=== PATIENT | female | born 1950 | race Caucasian/White ===

== ENCOUNTER → 2017-04-22 | Day surgery (SDC) | payer OTHER ==
[~2017-04-22] VITALS: Ht 160 cm; Wt 94.3 kg
--- NOTE | 2017-04-22 12:06 | Operative Report ---
Operative/Inv Procedure Report Surgery Date: 04/22/17 Name of Procedure: Cataract extraction lens implantation right eye Pre-Operative Diagnosis: Age-related cataract right eye 20/40 vision 20/60 glare vision Post-Operative Diagnosis: Same Estimated Blood Loss: none Surgeon/Environmental Health Aide: Danielito HOOD,Kareem Astorag Anesthesia: local monitored anesthesi Complications: None Operative/Procedure Note Note: The patient was brought to the operating room standard monitoring equipment was attached the patient was prepped and draped in the usual fashion for intraocular surgery. A lid speculum was placed to retract the lids. The case was begun by making [2] partial-thickness corneal relaxing [incisions] at 135. A temporal incision with a 2.4 mm keratome. The eye was stabilized with a Goldman ring during this incision. 1 mL of non-preserved lidocaine was introduced into the anterior chamber to provide anesthesia. The anterior chamber was then filled and deepened with viscoelastic. A curvilinear capsulorrhexis was achieved using a 30-gauge needle and is a cystotome and capsulorrhexis was finished using a Utrata forceps. A second or paracentesis incision was made temporally with a 1 mm MVR blade. The lens was then hydrodissected with balanced salt solution and found to be rotatable. The lens was emulsified using phacoemulsification and a modified four-quadrant cracking technique. The residual cortical material was removed using automated irrigation and aspiration and as much of the anterior capsular rim was cleaned as well as possible. The posterior capsule was cleaned first with the automated machine on a low setting and then manually with a Jake squeegee. The capsular bag was deepened with viscoelastic. The lens a Akreos AO60 22.5 Diopter placed into the bag under direct visualization and rotated so that the haptics were at 12 and 6:00. Viscoelastic was then removed from the eye by flushing it out and then by automated irrigation and aspiration. The eye was pressurized to a normal tone. 1/10 of a cc of cefuroxime solution was introduced into the anterior chamber to provide antibiotic prophylaxis. The wounds were sealed by hydrating the stroma adjacent to them and the eye was left at a proper tone after the wounds were checked and found not to be leaking. The lid speculum was removed from the orbit. Antibiotic and steroid drops were placed on the eye and then the eye was shielded. Monitoring equipment was removed from the patient and the patient was removed from the operative suite to the holding area. The patient tolerated the procedure well and will be seen in the office tomorrow.
== END ==
LOC: STS 03-18 07:00
DX: H25.9 Unspecified age-related cataract (principal); E11.9 Type 2 diabetes mellitus without complications; Z79.84 Long term (current) use of oral hypoglycemic drugs; J44.9 Chronic obstructive pulmonary disease, unspecified
CPT/HCPCS: J2250; V2632

== ENCOUNTER → 2017-06-10 | Day surgery (SDC) | payer OTHER ==
[~2017-06-10] VITALS: Ht 160 cm; Wt 91.2 kg
--- NOTE | 2017-06-10 11:07 | Operative Report ---
Operative/Inv Procedure Report Surgery Date: 06/10/17 Name of Procedure: Cataract extraction lens implantation left eye Pre-Operative Diagnosis: Age-related cataract left eye 20/40 vision 20/60 glare vision Post-Operative Diagnosis: Same Estimated Blood Loss: none Surgeon/Videotape Sales Representative: Danielito HOOD,Kareem Astorga Anesthesia: local monitored anesthesi Complications: None Operative/Procedure Note Note: The patient was brought to the operating room standard monitoring equipment was attached the patient was prepped and draped in the usual fashion for intraocular surgery. A lid speculum was placed to retract the lids. The case was begun by making 2 partial-thickness corneal relaxing incisions at 70. A temporal incision with a 2.4 mm keratome. The eye was stabilized with a Goldman ring during this incision. 1 mL of non-preserved lidocaine was introduced into the anterior chamber to provide anesthesia. The anterior chamber was then filled and deepened with viscoelastic. A curvilinear capsulorrhexis was achieved using a 30-gauge needle and is a cystotome and capsulorrhexis was finished using a Utrata forceps. A second or paracentesis incision was made temporally with a 1 mm MVR blade. The lens was then hydrodissected with balanced salt solution and found to be rotatable. The lens was emulsified using phacoemulsification and a modified four-quadrant cracking technique. The residual cortical material was removed using automated irrigation and aspiration and as much of the anterior capsular rim was cleaned as well as possible. The posterior capsule was cleaned first with the automated machine on a low setting and then manually with a Jake squeegee. The capsular bag was deepened with viscoelastic. The lens a Akreos AO 60 22.5 Diopter placed into the bag under direct visualization and rotated so that the haptics were at 12 and 6:00. Viscoelastic was then removed from the eye by flushing it out and then by automated irrigation and aspiration. The eye was pressurized to a normal tone. 1/10 of a cc of cefuroxime solution was introduced into the anterior chamber to provide antibiotic prophylaxis. The wounds were sealed by hydrating the stroma adjacent to them and the eye was left at a proper tone after the wounds were checked and found not to be leaking. The lid speculum was removed from the orbit. Antibiotic and steroid drops were placed on the eye and then the eye was shielded. Monitoring equipment was removed from the patient and the patient was removed from the operative suite to the holding area. The patient tolerated the procedure well and will be seen in the office tomorrow.
== END ==
LOC: STS 01:11
DX: H25.9 Unspecified age-related cataract (principal); E11.9 Type 2 diabetes mellitus without complications; Z79.84 Long term (current) use of oral hypoglycemic drugs; J44.9 Chronic obstructive pulmonary disease, unspecified; I10 Essential (primary) hypertension; J45.909 Unspecified asthma, uncomplicated
CPT/HCPCS: J2250; V2632

== ENCOUNTER 2017-11-10 18:51 | Inpatient (IN) | payer OTHER ==
[~2017-11-10] VITALS: Ht 160 cm; Wt 89.5 kg
--- NOTE | 2017-11-10 19:05 | ED GENERAL ADULT ---
History of Present Illness General Chief Complaint: General Adult Stated Complaint: SIB MUREAL, DEHYDRATION Source: patient, family, old records Exam Limitations: no limitations Vital Signs & Intake/Output Vital Signs & Intake/Output Vital Signs Date Time Temp Pulse Resp B/P B/P Pulse O2 O2 Flow FiO2 Mean Ox Delivery Rate 11/10 2303 98.7 76 20 140/78 97 11/10 2100 98.6 76 18 142/65 98 Room Air 11/10 1954 97 Room Air 11/10 1856 98.5 90 17 148/79 97 Room Air ED Intake and Output 11/11 0000 11/10 1200 Intake Total 1000 Output Total Balance 1000 Intake, IV 1000 Patient 201 lb Weight Weight Bed scale Measurement Method Allergies Coded Allergies: No Known Allergies (06/09/17) Triage Note: PT SENT TO ED BY MD REYNA FOR ABNORMAL LABS. HAD POTASSIUM LEVEL 7.2 AND REPORTS SHE IS DEHYDRATED. HAD CT SCAN OF ABD DONE ON THURSDAY FOR ABD PAIN. STATES ONLY HAD ORAL CONTRAST. CURRENTLY SYMPTOM FREE. Triage Nurses Notes Reviewed? yes HPI: This is a 67-year-old female with history of diu-dtvzxuv-xdqalnsne diabetes, hypertension, asthma, obesity and chronic diarrhea of unclear etiology with recently diagnosed celiac disease presenting to the emergency department with outpatient finding of hyperkalemia to 7.2. Patient denies any new symptoms but does complain of ongoing diarrhea. Specifically there is been no lightheadedness, dizziness, confusion, chest pain, shortness of breath, abdominal pain, nausea, vomiting. She reports normal urine output. She denies any lower extremity edema. Patient underwent CT abdomen and pelvis without IV contrast recently. See PCI for result. (Twan HOOD,Kareem) Reconcile Medications Ascorbic Acid (Vitamin C) 500 MG CAPSULE 1 TAB PO D HEALTH SUPPLEMENT ( Reported) Cholecalciferol (Vitamin D3) 1,000 UNIT TABLET 3 TAB PO D HEALTH SUPPLEMENT ( Reported) Cyanocobalamin (Vitamin B-12) 1,000 MCG TABLET 1.5 TAB PO DAILY HEALTH SUPPLEMENT (Reported) Fluticasone Propionate (Flovent Hfa) 220 MCG AER.W.ADAP 2 PUF INH BID ASTHMA (Reported) Hydroxyzine Hydrochloride (Atarax) 25 MG TAB 2 TAB PO BID ALLERGIES (Reported ) Lisinopril 20 MG TABLET 1 TAB PO QPM HIGH BLOOD PRESSURE (Reported) (Neftali Mabry MD) Past History Travel History Traveled to [place] past 21 day No Medical History Any Pertinent Medical History? see below for history Cardiovascular: hypertension Respiratory: asthma Gastrointestinal: CELIAC Endocrine: diabetes Surgical History Surgical History: non-contributory Psychosocial History What is your primary language Luxembourgish Tobacco Use: Never used Family History Hx Contributory? No (Kareem Trent MD) Review of Systems Review of Systems Constitutional: Reports: no symptoms. GI: Reports: diarrhea. All Other Systems: Reviewed and Negative (Kareem Trent MD) Physical Exam Physical Exam General Appearance: well developed/nourished, no apparent distress, comfortable Comments: Well-appearing elderly female, no acute distress. Abdomen is benign. HEENT exam within normal limits. Cardiac: Exam within normal limits. No significant edema bilateral lower extremity's. Intact pulse movement and sensation in all extremities. Patient neurologically intact, alert and oriented 4 Core Measures ACS in differential dx? No CVA/TIA Diagnosis: No Sepsis Present: No Sepsis Focused Exam Completed? No (Kareem Trent MD) Progress Differential Diagnoses I considered the following diagnoses in my evaluation of the patient: Lab error, hyperkalemia, unclear underlying etiology although some concern for acute kidney injury in the setting of volume depletion versus other primary renal etiology. Low suspicion for acute obstructive process given recent CT findings. Plan of Care: Orders Procedure Date/time Status Renal Dialysis Diet 11/11 B Active CBC WITHOUT DIFFERENTIAL 11/11 06 Active BASIC ELECTROLYTES PLUS BUN&CR 11/11 06 Active BASIC ELECTROLYTES PLUS BUN&CR 11/10 2300 Active Weight 11/10 2121 Active Teach/Educate 11/10 2121 Active Pain Treatment and Response 11/10 2121 Active Nutritional Intake, Monitor 11/10 2121 Active Isolation 11/10 2121 Active Patient Care Conference 11/10 2121 Active Activity/Ambulation 11/10 2121 Active Telemetry/[employer] Advisor 11/11 2103 Active Patient Data 11/11 2047 Active Admit to inpatient 11/10 2046 Active Vital Signs 11/10 2046 Complete Code Status 11/10 2046 Active Intake & Output 11/10 195 Complete URINE CREATININE, SPOT 11/10 1938 Complete URINE LYTES, SPOT 11/10 1938 Complete URINALYSIS 11/10 185 Complete MAGNESIUM 11/11 1855 Complete COMPREHENSIVE METABOLIC PANEL 11/10 185 Complete CBC WITHOUT DIFFERENTIAL 11/10 185 Complete EKG 11/10 185 Active TRC EVALUATION (GEN) 11/10 UNK Active Lab Add-on Test 11/10 [employer] Active Vital Signs 11/10 UNK Active Intake & Output 11/10 UNK Active FingerStick- Glucose 11/10 [employer] Active Laboratory Tests 11/11/17 0018: Sodium Pending, Potassium Pending, Chloride Pending, Carbon Dioxide Pending, Anion Gap Pending, BUN Pending, Creatinine Pending, BUN/Creatinine Ratio Pending 11/10/172136: Urine Color STRAW, Urine Clarity CLEAR, Urine pH 6.0, Ur Specific [place] 1.015, Urine Protein NEG, Urine Ketones NEG, Urine Nitrite NEG, Urine Bilirubin NEG, Urine Urobilinogen 0.2, Ur Leukocyte Esterase NEG, Ur Microscopic SEDIMENT EXAMINED, Urine RBC RARE, Ur Epithelial Cells RARE, Urine Bacteria RARE H, Urine Hemoglobin TRACE-INTACT, Urine Glucose NEG 11/10/172136: Ur Random Creatinine 7.9, Ur Random Sodium 132 H, Ur Random Potassium 11.4, Fraction Sodium Excret 17.8 H 11/10/171906: Anion Gap 7, Estimated GFR 35 L, BUN/Creatinine Ratio 20.0, Glucose 131 H, Calcium 9.1, Magnesium 1.4 L, Total Bilirubin 0.2, AST 14, ALT 22, Alkaline Phosphatase 70, Total Protein 6.5, Albumin 3.8, Globulin 2.7, Albumin/Globulin Ratio 1.4, CBC w Diff NO MAN DIFF REQ, RBC 3.42 L, MCV 91.1, MCH 30.1, MCHC 33.1, RDW 12.9, MPV 8.2, Gran % 55.7, Lymphocytes % 29.7, Monocytes % 5.6, Eosinophils % 8.7 H, Basophils % 0.3, Absolute Granulocytes 3.9, Absolute Lymphocytes 2.1, Absolute Monocytes 0.4, Absolute Eosinophils 0.6, Absolute Basophils 0 Plan for medical management of hyperkalemia, frequent reassessment, likely admission to hospitalist service for further management. Initial ED EKG: normal axis, normal intervals, normal p-waves, normal QRS complex, normal sinus rhythm, TW are mildly peaked; no qrs widening ([place] HOOD,Kareem) Departure Departure Time of Disposition: 2117 Disposition: STILL A PATIENT Condition: Stable Clinical Impression Primary Impression: Hyperkalemia Secondary Impressions: MARTELL (acute kidney injury) Referrals: Korin Bran MD (PCP/Family) Departure Forms: Customer Survey General Discharge Information Admission Note Spoke With: Mandi Pepper MD Documentation of Exam: Documentation of any treatments & extenuating circumstances including Concerns Regarding Discharge (functional status, medication knowledge or non-compliance, living conditions, etc.) that warrant an admission rather than observation: Repeat labs, nephrology consultation, IV fluids, frequent reassessment (Kareem Trent MD) PA/FLATWORK ASSEMBLER Co-Sign Statement Statement: ED Attending supervision documentation- x I saw and evaluated the patient. I have also reviewed all the pertinent lab results and diagnostic results. I agree with the findings and the plan of care as documented in the PA's/FLATWORK ASSEMBLER's documentation. [] I have reviewed the ED Record and agree with the PA's/FLATWORK ASSEMBLER's documentation. [] Additions or exceptions (if any) to the PAs/FLATWORK ASSEMBLER's note and plan are summarized below: [] (Raghavendra HOOD,Neftali) Critical Care Note Critical Care Note Critical Care Time: non-applicable (Kareem Trent MD)
[2017-11-10 19:12] LABS: ABSOLUTE BASOPHIL COUNT 0 /CUMM (0.0-0.2); ABSOLUTE EOSINOPHIL COUNT 0.6 /CUMM (0.0-0.7); ABSOLUTE GRANULOCYTE CT 3.9 /CUMM (1.4-6.5); ABSOLUTE LYMPH COUNT 2.1 /CUMM (1.2-3.4); ABSOLUTE MONOCYTE COUNT 0.4 /CUMM (0.10-0.60); BASOPHIL % 0.3 % (0.0-2.0); EOSINOPHIL % 8.7 % (0-5); GRANULOCYTE % 55.7 % (42.2-75.2); HEMATOCRIT 31.2 % (37-47); MEAN CORPUSCULAR HGB 30.1 PG (27.0-31.0); MEAN CORPUSCULAR HGB CONC 33.1 G/DL (33.0-37.0); MEAN CORPUSCULAR VOLUME 91.1 FL (81.0-99.0); MEAN PLATELET VOLUME 8.2 FL (7.4-10.4); PLATELET COUNT 298 /CUMM (130-400); RBC DISTRIBUTION WIDTH 12.9 % (11.5-14.5); RED BLOOD CELL CT 3.42 /CUMM (4.20-5.40)
[2017-11-10] MEDS ORDERED: LISINOPRIL20 M1 PO (21:24)
[2017-11-10] MEDS ORDERED: FLOVENT HFA12 GM INH (21:25)
[2017-11-10] MEDS ORDERED: VITAMIN B-121000 MC3 PO (21:28)
[2017-11-10] MEDS ORDERED: VITAMIN C500 M9 PO (21:29)
--- NOTE | 2017-11-10 21:29 | History & Physical ---
Vinny Reyna 11/10/172128: General Information and HPI MD Statement: I have seen and personally examined CASS RAMSEY and documented this H&P. The patient is a 67 year old F who presented with a patient stated chief complaint of [chronic diarrhea and high potassium of 7.2]. Source of Information: patient, family Exam Limitations: no limitations History of Present Illness: Patient is a 67-year-old lady with a past medical history significant for non- insulin-dependent diabetes mellitus, hypertension, asthma, obesity, chronic diarrhea who presented to emergency department of [facility] with a potassium of 7.2 which was checked outside. The patient has an extensive history of diarrhea for the past 2 years with unknown etiology. Her hand sewer shoes is Dr. Freedman, who has tried to do colonoscopy 4 times over so far, but was never performed due to the frequent numbers of diarrhea. She has recently tried gluten-free diet and noticed that the numbers of the diarrhea has decreased. She mentions that she wears pads and she almost has 28 episodes of diarrhea in every 1-1/2 day. She does not have any fever, chills, sweating. She mentions that she has blood in his stool since she has started to have diarrhea. She describes the blood as "red blubs and jelly". In his most recent blood work it was noticed that he has a creatinine of 1.5, she was using metformin for her diabetes, which was a stopped from this morning. She mentions that she has been taking 400 mg of ibuprofen every day for almost more than 10 years due to her arthritis induced pain which does not respond to acetaminophen. She reports that in June when her renal function was checked her creatinine was slightly elevated, which was normal in the lab recheck. He denies any lightheadedness, dizziness, confusion, palpitation, chest pain, shortness of breath, abdominal pain, nausea, vomiting, frequency, dysuria, lower extremity edema. The patient mentioned that recently they have found a mass in her pelvis for which they have recommended intravaginal ultrasound. In the same CT scan they have also found gallstones, the patient also reports that she has right upper quadrant pain after fatty meals. While in the ED she had an episode of blood sugar of 60 which was checked by Accu-Chek. Half of normal saline was given to her. She did not have any symptoms with low blood sugar. Her PCP is Dr. Niel and her hand sewer shoes is Dr. Freedman. Allergies: She is not allergic to any known medications or foods Past medical history: None insulin dependent diabetes mellitus which was diagnosed in last August, hypertension, asthma, obesity, chronic diarrhea for the past 2 years, Past surgical history: PHACO for cataracts bilaterally that was done this year, surgery for ectopic in 1979 Social history: She does not smoke and has never smoked cigarettes, no alcohol, and no drugs. Family history: Her daughter mentions that the patient's mother has of colitis. Allergies/Medications Allergies: Coded Allergies: No Known Allergies (06/09/17) Compliance With Home Meds: GOOD Past History Travel History Traveled to [place] past 21 day No Medical History Cardiovascular: hypertension Respiratory: asthma Gastrointestinal: CELIAC Endocrine: diabetes Surgical History Surgical History: non-contributory Review of Systems Review of Systems Constitutional: Reports: see HPI. Exam & Diagnostic Data Last 24 Hrs of Vital Signs/I&O Vital Signs Date Time Temp Pulse Resp B/P B/P Pulse O2 O2 Flow FiO2 Mean Ox Delivery Rate 11/10 2303 98.7 76 20 140/78 97 11/10 2100 98.6 76 18 142/65 98 Room Air 11/10 1954 97 Room Air 11/10 1856 98.5 90 17 148/79 97 Room Air Intake & Output 11/11 0800 11/11 0000 11/10 1600 Intake Total 1000 Output Total Balance 1000 Intake, IV 1000 Patient 201 lb Weight Weight Bed scale Measurement Method Physical Exam General Appearance Alert, Oriented X3, Cooperative, No Acute Distress Skin No Rashes Skin Temp/Moisture Exam: Warm/Dry Sepsis Skin Exam (color): Normal for Ethnicity HEENT Atraumatic, PERRLA, EOMI, Mucous Membr. moist/pink Neck Supple, No thryomegaly Cardiovascular Regular Rate, Normal S1, Normal S2 Lungs Clear to Auscultation, Normal Air Movement Abdomen Normal Bowel Sounds, Soft, No Tenderness, No Hepatospenomegaly Neurological Normal Speech, Strength at 5/5 X4 Ext, Normal Tone Extremities No Clubbing, No Cyanosis, No Edema, Normal Pulses Vascular Normal Pulses, Pulses Symmetrical Sepsis Peripheral Pulse Location: Dorsalis Pedis Sepsis Peripheral Pulse Exam: Normal Sepsis Cap Refill Exam: <2 Sec Assessment/Plan Assessment: The patient is a 67-year-old female past medical history significant for non- insulin-dependent diabetes mellitus, hypertension, asthma, obesity, chronic diarrhea who has presented to ED with a high potassium of 7.2. Hyperkalemia: The patient was admitted to the ED with a potassium of 7.2 which decreased to 6.7 and then up again to 6.9. EKG did not show any changes. The patient has an ongoing diarrhea for almost 2 years, I would expect hypokalemia if anything, so there is probably some underlying disorder which is causing retention of potassium. Was also taking some medications like lisinopril which increases potassium. Plan: Discontinue lisinopril, urine potassium, Kayexalate, dextrose and insulin, calcium gluconate, normal saline and furosemide. Aldosterone, serum renin, urine electrolytes will be checked Acute kidney injury: The patient was diagnosed to have a creatinine of 1.5 today , the last creatinine was checked in June which was slightly elevated and when it was checked later in the same month it was normal. The patient has a long history of using 400 mg of ibuprofen (Advil) 4 days a week for the past 10 years due to arthritis pain. She also has a recently diagnosed auq-sdaiyks-wdlovxwmm diabetes mellitus. These factors could be the underlying cause of acute kidney injury. Plan: Stop all nephrotoxic agents, normal saline IV at 75 mL/h, public accountant consult Hypoglycemia: The patient had one episode of asymptomatic blood sugar of 60 Plan: We will check blood sugar regularly and will administer dextrose as needed Chronic diarrhea: She has had an ongoing chronic diarrhea for 2 years, her hand sewer shoes is Dr. Freedman, we will talk to Dr. Freedman to see the patient tomorrow morning. She did not have any history of recent antibiotic use. She also has a hemoglobin of 10.3 she is probably due to chronic blood loss from the lower GI tract. Plan: C. difficile, GI consult Hypomagnesemia: The patient had a magnesium level of 1.4 in ED Plan: 1 g of IV magnesium was administered and we will recheck magnesium. Continue with p.o. magnesium Obesity: The patient has a BMI of 35.6 Plan: Asked the patient to try to lose weight. As Ranked By This Provider Problem List: 1. MARTELL (acute kidney injury) 2. Hyperkalemia Core Measures/Misc (11/16) Acute Coronary Syndrome ACS Diagnosis: No Congestive Heart Failure Congestive Heart Failure Diagnosis No Cerebrovascular Accident CVA/TIA Diagnosis: No VTE (View Protocol) VTE Risk Factors Age>40 No Mechanical VTE Prophylaxis d/t N/A MechProphylax Ordered No VTE Pharm Prophylaxis d/t NA PharmProphylax ordered Sepsis (View protocol) Sepsis Present: No If YES complete Sepsis Event Note If YES complete Sepsis Event Note Lia Chang 11/10/172: General Information and HPI Allergies/Medications Home Med list Amlodipine Besylate (Norvasc) 10 MG TABLET 1 TAB PO DAILY BP . Ascorbic Acid (Vitamin C) 500 MG CAPSULE 1 TAB PO D HEALTH SUPPLEMENT ( Reported) Cholecalciferol (Vitamin D3) 1,000 UNIT TABLET 3 TAB PO D HEALTH SUPPLEMENT ( Reported) Cyanocobalamin (Vitamin B-12) 1,000 MCG TABLET 1.5 TAB PO DAILY HEALTH SUPPLEMENT (Reported) Fluticasone Propionate (Flovent Hfa) 220 MCG AER.W.ADAP 2 PUF INH BID ASTHMA (Reported) Hydroxyzine Hydrochloride (Atarax) 25 MG TAB 2 TAB PO BID ALLERGIES (Reported ) Core Measures/Misc (11/16) Sepsis (View protocol) If YES complete Sepsis Event Note If YES complete Sepsis Event Note Resident Review Statement Resident Statement: examined this patient, discussed with internal consultant, agreed with internal consultant Other Findings: Mrs Ramsey is a 67-year-old female with past medical history of insulin- dependent diabetes mellitus, hypertension, hyperlipidemia,, asthma, chronic diarrhea secondary to celiac disease, came in with chief complaint of chronic diarrhea along with high potassium and was referred to come in to [facility] by her primary care Dr. Neil. More recent history, she has been having chronic diarrhea for past 2 years, she endorses a history of having almost 26-28 episodes every day, and changing at least 50-56 pads in 24 hours, she has been using Imodium on and off, she has been seeing Dr. Ortiz as outpatient however due to her extreme uncontrollable diarrhea in spite of trying to have preparation for colonoscopy 4 times, she has not had a colonoscopy. She also endorses history of bright red blood per rectum, streak of blood on and off when she has diarrhea, no theodore blood. Her primary care did some blood tests and she was found to have celiac disease after which she has been using gluten-free diet. This has been helping control her diarrhea only up to a certain extent. She also endorses to history of taking meloxicam almost 4 times per week on average for more than 10 years now. Her primary care Dr. neil has been following her renal functions previously her renal functions have noted to be elevated however this time she had extremely high creatinine and extremely high potassium therefore she was asked to come to the ER. Review of system is mentioned above. Physical exam she was alert oriented to time place and person, not in any acute distress. HEENT no JVD. CVS S1-S2 present. RS air entry bilaterally equal, no adventitious sounds. Per abdomen soft, nontender Lateral lower extremity no edema clubbing or cyanosis. CT A/P doen at PCP office shwoed 1. Cholelithiasis with the largest partially calcified gallstone measures 3 cm. 2. Subcapsular solitary 2 cm hypodense lesion within the spleen, may represent an incidental cyst. 3. 4.5 cm predominantly cystic, associated with 1.5 cm solid nodular component, left adnexal mass. Follow-up pelvic ultrasound is recommended for further full detail evaluation. She was planned to obtain a transvaginal ultrasound. She also complains of some mild right upper quadrant pain on and off, currently she does not have any pain. Vitals on presentation Temperature of 98.7, pulse of 76-90, respiration of 18-20, blood pressure of 142 /65, she was saturating 97% on room air Potassium of 7.0, H/H of 10.3/31.2 (baseline 8/H), platelet of 298. Sodium of 141, potassium 6.7, BUN/creatinine 30/1.5, magnesium of 1.4. Initial EKG showed mildly peaked T waves, however normal sinus rhythm, QTC of 351, no other acute ST-T wave changes We will admit the patient to cardiac telemetry floor for continuous cardiac monitoring. Assessment. Patient has been having chronic diarrhea with multiple episodes of diarrhea every day, with this background she would rather be losing potassium, however she actually has higher potassium with acute kidney injury. The AK I along with high potassium seems to be secondary to multiple causes, one of them could be long-term use of NSAIDs, other contributing factor could be dehydration along with history of diabetes mellitus. She was also on metformin for her diabetes which was discontinued 1 day prior to today's presentation by her PCP. She also takes lisinopril, which would also cause hyperkalemia, we will hold lisinopril and dose her with Norvasc 10 mg for her blood pressure. Metabolic acidosis with high potassium also indicates type IV RTA, we will obtain plasma renin, aldosterone along with a.m. cortisol, which could be followed. Problem list. 1 MARTELL (multifactorial, dehydration plus NSAID use plus diabetes plus lisinopril) . Continue to monitor intake and output, continue IV hydration, avoid any kind of NSAID usage. Hold metformin which has been done by primary care. Hold lisinopril, treat blood pressure with Norvasc. Obtain plasma renin, aldosterone along with a.m. cortisol as 1 of the possible causes could be RTA. Recent HbA1c noted to be 6.3 as per the patient's history. Continue to monitor BEP. Avoid any other nephrotoxic medications. Nephro consult in am 2 Hyperkalemia. Patient received initial IV calcium gluconate, insulin with dextrose along with Kayexalate, she had mildly elevated T waves however no obvious changes on EKG, hyperkalemia seems to be secondary to RTA, workup as above, continue to monitor potassium. 3 Normocytic anemia, hemoglobin in August 2016 was noted to be 14.4, gradually reduced to 11.4 in June 2017 and now 10.3 in October 2017. Patient has been losing blood in her stools, guaiac all stools, she has been planned for colonoscopy, GI consult in a.m. to see if colonoscopy can be pursued during this admission. We will obtain serum iron studies to look into the cause of anemia. Crossmatching type. Can also check B12/folate. 4. Occasional right upper quadrant pain. Patient was found to have cholelithiasis with no evidence of cholecystitis on recent CT abdomen and pelvis. Continue to monitor closely. Avoid fatty meals. 5. Pelvic adnexal mass. Transvaginal ultrasound recommended by PCP, can be done now versus outpatient 6. Hypomagnesemia Secondary to chronic diarrhea, continue to monitor and replete as necessary. 7. History of insulin-dependent diabetes mellitus, with one episode of hypoglycemia. Patient was found to have sugar in 60s, she was on metformin which was discontinued 1 day prior to today's presentation due to worsening kidney functions. We will continue to monitor fingerstick and manage her with NovoLog sliding scale. For now she was given dextrose and her sugar has improved to 116 Full code. Renal dialysis diet. Pain pathway. DVT prophylaxis with Vivian Pepper MD,Williamalinasamira 11/10/17 2251: Core Measures/Misc (11/16) Sepsis (View protocol) If YES complete Sepsis Event Note If YES complete Sepsis Event Note Attending MD Review Statement Attending Statement Attending MD Statement: examined this patient, discuss w/resident/PA/SUPPORT MANAGER, agreed w/resident/PA/SUPPORT MANAGER, discussed with family, reviewed EMR data (avail), discussed with nursing, reviewed images, amended to note Attending Assessment/Plan: 67-year-old female with history of cla-qkcauxo-iwzeguuqm diabetes mellitus, osteoarthritis on chronic NSAID therapy with ibuprofen, hypertension on ASHLI inhibitor therapy and chronic diarrhea currently being worked up by the gastroenterology service. Sent in for evaluation due to elevated potassium levels. Laboratory data shows potassium level chronically elevated dating Back to April 2017. Her only symptoms include chronic diarrhea. She reports several loose bowel movements daily. She admits to some relief with use of Imodium. Admits to some bright red blood per rectum on occasion. She also complains intermittently of right upper quadrant pain. Denies associated nausea or vomiting. On examination she is not in any obvious distress. Abdomen is soft and nontender with no reproducible pain. Bowel sounds are normal. She has no physical evidence of volume overload. Problems: 1. Hyperkalemia 2. 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 3. Chronic diarrhea 4. Chronic anemia 5. Chronic kidney disease stage III Plan: -On account of EKG changes noted in the emergency room she was admitted to the telemetry service. -Patient received insulin (with dextrose), calcium gluconate Lasix and IV fluids in the ER. Repeat serum electrolytes. Continue IV fluids overnight. -She has multiple potential causes of type IV RTA including diabetic nephropathy , NSAID use and also ASHLI inhibitor therapy. Hold NSAIDs for now. Hold ASHLI inhibitor therapy. -Begin patient on Norvasc 10 mg daily for blood pressure control. -Would recommend checking plasma renin activity, aldosterone and cortisol level to rule out hyporeninemic hypoaldosteronism and determine if patient will benefit from mineralocorticoid therapy. -Nephrology consultation. -Check iron profile. -For her diarrhea recommend ruling out Clostridium difficile associated diarrhea and other infectious diarrhea. These appear less likely given the chronicity of her diarrhea. She should follow-up with the GI service as an outpatient for scheduling of her colonoscopy.
[2017-11-10] MEDS ORDERED: VITAMIN D31000 UNI2 PO (21:30)
[2017-11-10] MEDS ORDERED: HYDROXYZINE HCL25 M2 PO (22:08)
--- NOTE | 2017-11-10 22:49 | Admission Certification ---
Admission Certification Certification Statement - As attending physician, I certify that at the time of - admission, based on clinical presentation, severity of - symptoms, need for further diagnostic testing and - therapeutic interventions, and risk of adverse outcomes - without in-hospital treatment, in my clinical assessment, - this patient requires an acute hospital stay for a minimum - of two nights or longer. I have also considered psychsocial - factors such as support system, advanced age, financial - issues, cognitive issues, and failed out-patient treatments, - past re-admission history, safety of patient, and lack of - compliance as applicable. Specific rationale supporting this admission is: Patient requires hospitalization for correction for hyperkalemia and further workup.
[2017-11-10 23:03] VITALS: BP 140/78
[2017-11-11 06:57] VITALS: BP 144/60
[2017-11-11 07:59] LABS: ABSOLUTE BASOPHIL COUNT 0.1 /CUMM (0.0-0.2); ABSOLUTE EOSINOPHIL COUNT 0.5 /CUMM (0.0-0.7); ABSOLUTE LYMPH COUNT 1.9 /CUMM (1.2-3.4); ABSOLUTE MONOCYTE COUNT 0.4 /CUMM (0.10-0.60); BASOPHIL % 0.8 % (0.0-2.0); EOSINOPHIL % 7.7 % (0-5); GRANULOCYTE % 57.8 % (42.2-75.2); HEMATOCRIT 29.9 % (37-47); MEAN CORPUSCULAR HGB 30.6 PG (27.0-31.0); MEAN CORPUSCULAR HGB CONC 33.3 G/DL (33.0-37.0); MEAN CORPUSCULAR VOLUME 91.8 FL (81.0-99.0); MEAN PLATELET VOLUME 8.9 FL (7.4-10.4); PLATELET COUNT 283 /CUMM (130-400); RBC DISTRIBUTION WIDTH 12.6 % (11.5-14.5); RED BLOOD CELL CT 3.26 /CUMM (4.20-5.40); WHITE BLOOD CELL COUNT 6.8 /CUMM (4.8-10.8)
--- NOTE | 2017-11-11 07:59 | PN- Housestaff ---
JonnyPearson 11/11/17 0759: Subjective Follow-up For: Hyperkalemia Chronic diarrhea Tele-Events Since Last Visit: Patient remained in sinus rhythm with heart rate 6383 Subjective: No overnight events. Patient remained afebrile. Seen and examined this morning. She denied chest pain, palpitation, nausea, vomiting, chill, fever, abdominal pain dysuria. Patient reported that she is feeling weak for a couple of days. According the patient she has chronic diarrhea but for last 2 days she did not have any bowel movement. Review of Systems Constitutional: Reports: weakness. Denies: chills, fever. EENTM: Reports: no symptoms. Cardiovascular: Denies: chest pain, palpitations, syncope. Respiratory: Denies: cough, short of breath, sputum production, wheezing. Gastrointestinal: Denies: abdominal pain, constipation, diarrhea, nausea, vomiting. Genitourinary: Denies: discharge, frequency, nocturia. Musculoskeletal: Reports: no symptoms. Neurological/Psychological: Denies: ataxia, depressed, headache. Objective Last 24 Hrs of Vital Signs/I&O Vital Signs Date Time Temp Pulse Resp B/P B/P Pulse O2 O2 Flow FiO2 Mean Ox Delivery Rate 11/11 1014 Room Air Room Air 11/11 0843 76 144/60 11/11 0657 98.5 76 20 144/60 96 11/10 2303 98.7 76 20 140/78 97 11/10 2100 98.6 76 18 142/65 98 Room Air 11/10 1954 97 Room Air 11/10 1856 98.5 90 17 148/79 97 Room Air Intake & Output 11/11 1600 11/11 0800 11/11 0000 Intake Total 1300 1000 Output Total Balance 1300 1000 Intake, IV 1300 1000 Patient 203 lb 201 lb Weight Weight Bed scale Measurement Method Physical Exam General Appearance: Alert, Oriented X3, Cooperative Skin Temp/Moisture Exam: Warm/Dry Sepsis Skin Exam (color): Normal for Ethnicity HEENT: Atraumatic, PERRLA, EOMI Neck: Supple Cardiovascular: Normal S1, Normal S2 Lungs: Clear to Auscultation Abdomen: Soft, No Tenderness Neurological: Normal Speech, Strength at 5/5 X4 Ext, Normal Tone Extremities: No Edema Assessment/Plan Assessment: 67 YO F with, obese PMH significant for ojk-ehqbvin-cdfiuiqwh diabetes mellitus, hypertension, asthma, chronic diarrhea who presented to emergency department of [facility] with a potassium of 7.2 which was checked outside. Patient is being followed telemetry floor for following problems. Hyperkalemia: -Patient has hyperkalemia on admission. Her potassium level was 7.2. Possibly due to renal tubular acidosis, anion gap was within normal limits but r bicarbonate was low. -Patient received calcium gluconate and dextrose with insulin in ED. Her potassium this morning was 5.6 -Holding her lisinopril for hyperkalemia. -Patient also received 2 Kayexalate. -Follow-up with potassium level -Follow-up with nephrology recommendations -Follow-up results of aldosterone and rennin level -Her cortisol is within normal limits. MARTELL: -Patient has worsening in her kidney function since June 2017. -Patient has her GFR was in 30s and baseline creatinine 1.5 -Acute kidney injury possibly due to prerenal considering her poor oral intake and chronic diarrhea. -IV hydration with D5 half normal saline at the rate of 125 mL/h. -Follow-up renal function. History of chronic diarrhea: -Patient reported chronic diarrhea with blood in it due to unknown etiology so far. Patient was scheduled with Dr. Olea 3 times for colonoscopy but could not get it because of her preparation was not good. -Patient will be n.p.o. overnight for endoscopy and colonoscopy tomorrow. We will do preparation with GoLYTELY overnight. -Follow-up GI recommendation if patient can get inpatient colonoscopy. History of hypertension: -Continue amlodipine -Holding her lisinopril due to hyperkalemia. History of diabetes: -Continue Accu-Cheks -Her blood sugar was 106 this morning History of asthma: -Continue TRC nebulization as needed. -Continue Flovent inhaler DVT prophylaxis: Mechanical only considering her blood in stool CODE STATUS: Full code Problem List: 1. Hyperkalemia Pain Ratin Pain Location: none Pain Goal: Remain pain free Pain Plan: pain pathway Tomorrow's Labs & Rationales: cbc/bep/Dinorah Mayberry MD 11/11/17 1000: Attending Review Statement Attending Statement Attending Statement: examined this patient, discuss w/resident/PA/PIN DRAFTING MACHINE TENDER, agreed w/resident/PA/PIN DRAFTING MACHINE TENDER, discussed with family, reviewed EMR data (avail), discussed with nursing, discussed with case mgmt Attending Assessment/Plan: 67-year-old female past medical history of diabetes, hypertension on an ASHLI inhibitor and metformin as an outpatient who is here with severe refractory hyperkalemia. The etiology of the hyperkalemia is unclear at this point. She got Kayexalate, calcium gluconate and insulin and her potassium is better at 5.6 today. Will call renal to help us out and whether this is a type IV RTA that warrants treatment. We will obviously hold off on any ASHLI or ARB. Will also call GI as Dr. Ortiz has been seeing her for diarrhea with blood and has been trying to schedule a colonoscopy but has been unsuccessful as an outpatient.
--- NOTE | 2017-11-11 10:59 | Cons- Gastroenterology ---
General Information and HPI Consulting Request Date of Consult: 11/11/17 Requested By: Dinorah Rubin MD Reason for Consult: Diarrhea Source of Information: patient, Electronic Medical Record Exam Limitations: no limitations History of Present Illness: Patient is a 67 year old female well known to me from the outpatient setting where she was undergoing evaluation for diarrhea. She presents to [facility] with an increase in creatinine to 1.5. She has a past medical history significant for [id number] diabetes mellitus, hypertension, asthma, and obesity. Ms. Stearns has had had diarrhea for the past 2 years and EGD and colonoscopy have been scheduled at least 4 times but were cancelled due to her perceived inability to prep in the setting of diarrhea. She has recently started a gluten-free diet and noticed that the numbers of diarrheal stools had decreased. However, she recently had a CT Scan of the abdomen and pelvis and after drinking the contrast had marked increase in her diarrhea. CT Scan of the abdomen did show gallstones. The full results are as follows: FINDINGS: LUNG BASES: The visualized lung bases are unremarkable. LIVER, GALLBLADDER, AND BILIARY TREE: The liver is normal in size, shape, and attenuation. No focal hepatic lesion or biliary ductal dilatation is present. Multiple calcified as well as noncalcified gallstones are present, the largest partially calcified gallstone measures 3 cm. There is no CT features of superimposed acute cholecystitis or biliary obstruction seen. PANCREAS: Partially fatty replaced, otherwise unremarkable on these nonenhanced study. SPLEEN: Solitary subcapsular approximately 2 cm maximum dimension hypodensity is noted within the inferior posterior lateral part of the spleen with Hounsfield value of 20, may represent an incidental cyst. ADRENAL GLANDS: Unremarkable. KIDNEYS AND URETERS: The kidneys are normal in size, shape, and attenuation. No hydronephrosis, hydroureter, or calculi seen. No perinephric stranding. BLADDER: Suboptimally distended. GASTROINTESTINAL TRACT: Mild colonic diverticulosis related changes are noted within the sigmoid colon. Significant fecal residual is noted within the large bowel. The appendix is not visualized. The small bowel loops are decompressed. There is a small sliding hiatal hernia present. ABDOMINAL WALL: No significant hernia is appreciated. LYMPH NODES: Normal. VASCULAR: Unremarkable. PELVIC VISCERA: There is a predominantly cystic well-circumscribed left adnexal mass identified, measures 4.5 x 4.3 x 2.2 cm at its maximum anteroposterior by transverse by craniocaudal dimension. Specific note is made of a superimposed solitary nodular partially exophytic component measuring 1.5 cm. Follow-up pelvic ultrasound is recommended for further full detail evaluation. The uterus is unremarkable. There is no right adnexal mass present. There is no free fluid and/or free air present. OSSEOUS STRUCTURES: No suspicious lytic or sclerotic abnormalities. IMPRESSION: 1. Cholelithiasis with the largest partially calcified gallstone measures 3 cm. 2. Subcapsular solitary 2 cm hypodense lesion within the spleen, may represent an incidental cyst. 3. 4.5 cm predominantly cystic, associated with 1.5 cm solid nodular component, left adnexal mass. Follow-up pelvic ultrasound is recommended for further full detail evaluation. She has had an outpatient Celiac Panel done in April of si year that showed an elevated Anti-tTg IgA that was >100. Of note she has been taking 400 mg of ibuprofen every day for almost more than 10 years due to her arthritis induced pain which does not respond to acetaminophen. She reports that in June when her renal function was checked her creatinine was slightly elevated. Allergies/Medications Allergies: Coded Allergies: No Known Allergies (06/09/17) Home Med List: Ascorbic Acid (Vitamin C) 500 MG CAPSULE 1 TAB PO D HEALTH SUPPLEMENT ( Reported) Cholecalciferol (Vitamin D3) 1,000 UNIT TABLET 3 TAB PO D HEALTH SUPPLEMENT ( Reported) Cyanocobalamin (Vitamin B-12) 1,000 MCG TABLET 1.5 TAB PO DAILY HEALTH SUPPLEMENT (Reported) Fluticasone Propionate (Flovent Hfa) 220 MCG AER.W.ADAP 2 PUF INH BID ASTHMA (Reported) Hydroxyzine Hydrochloride (Atarax) 25 MG TAB 2 TAB PO BID ALLERGIES (Reported ) Lisinopril 20 MG TABLET 1 TAB PO QPM HIGH BLOOD PRESSURE (Reported) Current Medications: Current Medications Sig/Idania Start time Last Medication Dose Route Stop Time Status Admin Amlodipine Besylate 10 MG DAILY 11/11 0900 AC 11/11 PO 0843 Calcium Gluconate 1 GM ONCE ONE 11/11 0130 CAN Sodium Chloride 100 ML IV 11/11 228 Calcium Gluconate 0 .STK-MED ONE 11/10 2016 DC IV Calcium Gluconate 1 GM ONCE ONE 11/10 2014 DC 11/10 Sodium Chloride 100 ML IV 09/11 2114 2040 Dextrose 25 GM ONCE ONE 11/11 0130 CAN IV 11/11 0131 Dextrose 25 GM ONCE ONE 11/11 1999 DC / IV 11/10 2000 204 Dextrose/Water 500 ML .Q1H 11/11 0130 CAN IV 11/11 0229 Furosemide 0 .STK-MED ONE 11/10 2016 DC IV Furosemide 20 MG ONCE ONE 11/10 2000 DC / IV 11/10 Insulin Human Regular 10 UNITS ONCE ONE 11/11 0130 CAN IV 11/11 0131 Insulin Human Regular 10 UNITS ONCE ONE 11/10 2000 DC / IV 11/10 2000 204 Magnesium Oxide 400 MG ONE ONE 11/10 2300 DC 11/10 PO 11/10 230 2310 Magnesium Sulfate 1 GM Q2H 11/10 2145 DC 11/10 Dextrose/Water 100 ML IV 11/10 2344 2210 Sodium Chloride 1,000 ML Q13H 11/11 0215 DC 11/11 IV 0236 Sodium Chloride 1,000 ML BOLUS ONE 11/10 2145 DC 11/11 IV 11/10 2244 0002 Sodium Chloride 1,000 ML BOLUS ONE 11/10 1900 DC 11/10 IV 11/10 195 1957 Sodium Polystyrene 60 ML ONCE ONE 11/11 0130 DC 11/11 Sulfonate PO 11/11 013 0235 Sodium Polystyrene 0 .STK-MED ONE 11/10 2016 DC Sulfonate .ROUTE Sodium Polystyrene 60 ML ONCE ONE 11/10 2014 DC 11/10 Sulfonate PO 11/10 Past History Travel History Traveled to [place] past 21 day No Medical History Blood Transfusion Hx: Yes Neurological: NONE EENT: NONE Cardiovascular: hypertension Respiratory: asthma Gastrointestinal: CELIAC Hepatic: NONE Renal: NONE Musculoskeletal: NONE Psychiatric: NONE Endocrine: diabetes Blood Disorders: NONE Cancer(s): NONE [place]/Reproductive: NONE Surgical History Surgical History: non-contributory Psychosocial History Where Do You Live? Home Services at Home: None Smoking Status: Never Smoked Review of Systems Review of Systems Constitutional: Reports: no symptoms. EENTM: Reports: no symptoms. Cardiovascular: Reports: no symptoms. Respiratory: Reports: see HPI. GI: Reports: see HPI. Genitourinary: Reports: no symptoms. Musculoskeletal: Reports: no symptoms. Skin: Reports: no symptoms. Neurological/Psychological: Reports: no symptoms. Hematologic/Endocrine: Reports: no symptoms. Immunologic/Allergic: Reports: no symptoms. Exam & Diagnostic Data Vital Signs and I&O Vital Signs Date Time Temp Pulse Resp B/P B/P Pulse O2 O2 Flow FiO2 Mean Ox Delivery Rate 11/11 1014 Room Air Room Air 11/11 0843 76 144/60 11/11 0657 98.5 76 20 144/60 96 11/10 2303 98.7 76 20 140/78 97 11/10 2100 98.6 76 18 142/65 98 Room Air 11/10 1954 97 Room Air 11/10 1856 98.5 90 17 148/79 97 Room Air Intake & Output 11/11 1600 11/11 0400 11/10 1600 11/10 0400 11/09 1600 11/09 0400 Intake Total 1300 1000 Output Total Balance 1300 1000 Intake, IV 1300 1000 Patient 203 lb 201 lb Weight Weight Bed scale Measurement Method Physical Exam General Appearance: well developed/nourished, no apparent distress, alert, awake , comfortable Head: atraumatic, normal appearance Respiratory: normal breath sounds, no respiratory distress, quiet respiration, lungs clear Cardiovascular: regular rate/rhythm, Normal S1 and S2 without rub, murmur or gallop Gastrointestinal: normal bowel sounds, soft, non-tender, no organomegaly Neurologic/Psych: no motor/sensory deficits, awake, alert, oriented x 3, normal gait, normal mood/affect Results Pertinent Lab Results: Laboratory Tests 11/11 11/11 11/11 1539 0626 0626 Chemistry Sodium (137 - 145 mmol/L) Pending 143 Potassium (3.5 - 5.1 mmol/L) Pending 5.6 H Chloride (98 - 107 mmol/L) Pending 115 H Carbon Dioxide (22 - 30 mmol/L) Pending 20 L Anion Gap (5 - 16) Pending 8 BUN (7 - 17 mg/dL) Pending 23 H Creatinine (0.5 - 1.0 mg/dL) Pending 1.5 H Estimated GFR (>60 ml/min) 35 L BUN/Creatinine Ratio (7 - 25 %) Pending 15.3 Magnesium Pending Renin Pending Aldosterone Pending Cortisol AM Sample (4.46 - 22.7 ug/dL) 9.5 Hematology CBC w Diff NO MAN DIFF REQ WBC (4.8 - 10.8 /CUMM) 6.8 RBC (4.20 - 5.40 /CUMM) 3.26 L Hgb (12.0 - 16.0 G/DL) 10.0 L Hct (37 - 47 %) 29.9 L MCV (81.0 - 99.0 FL) 91.8 MCH (27.0 - 31.0 PG) 30.6 MCHC (33.0 - 37.0 G/DL) 33.3 RDW (11.5 - 14.5 %) 12.6 Plt Count (130 - 400 /CUMM) 283 MPV (7.4 - 10.4 FL) 8.9 Gran % (42.2 - 75.2 %) 57.8 Lymphocytes % (20.5 - 51.1 %) 27.4 Monocytes % (1.7 - 9.3 %) 6.3 Eosinophils % (0 - 5 %) 7.7 H Basophils % (0.0 - 2.0 %) 0.8 Absolute Granulocytes (1.4 - 6.5 /CUMM) 4.0 Absolute Lymphocytes (1.2 - 3.4 /CUMM) 1.9 Absolute Monocytes (0.10 - 0.60 /CUMM) 0.4 Absolute Eosinophils (0.0 - 0.7 /CUMM) 0.5 Absolute Basophils (0.0 - 0.2 /CUMM) 0.1 11/11 11/11 11/10 0145 0018 2137 Chemistry Sodium (137 - 145 mmol/L) 141 Potassium (3.5 - 5.1 mmol/L) 6.0 *H 6.9 *H Chloride (98 - 107 mmol/L) 118 H Carbon Dioxide (22 - 30 mmol/L) 13 L Anion Gap (5 - 16) 10 BUN (7 - 17 mg/dL) 28 H Creatinine (0.5 - 1.0 mg/dL) 1.6 H Estimated GFR (>60 ml/min) 32 L BUN/Creatinine Ratio (7 - 25 %) 17.5 Magnesium (1.6 - 2.3 mg/dL) 1.6 Urines Urine Color (YEL,AMB,STR) STRAW Urine Clarity (CLEAR) CLEAR Urine pH (5.0 - 8.0) 6.0 Ur Specific [place] (1.001 - 1.035) 1.015 Urine Protein (NEG,<30 MG/DL) NEG Urine Ketones (NEG) NEG Urine Nitrite (NEG) NEG Urine Bilirubin (NEG) NEG Urine Urobilinogen (0.1 - 1.0 EU/dl) 0.2 Ur Leukocyte Esterase (NEG) NEG Ur Microscopic SEDIMENT EXAMINED Urine RBC (0 - 5 /HPF) RARE Ur Epithelial Cells (NONE,FEW) RARE Urine Bacteria (NEG/NONE) RARE H Urine Hemoglobin (NEG) TRACE-INTACT Urine Glucose (N MG/DL) NEG 11/10 11/10 2137 1907 Chemistry Sodium (137 - 145 mmol/L) 141 Potassium (3.5 - 5.1 mmol/L) 6.7 *H Chloride (98 - 107 mmol/L) 115 H Carbon Dioxide (22 - 30 mmol/L) 19 L Anion Gap (5 - 16) 7 BUN (7 - 17 mg/dL) 30 H Creatinine (0.5 - 1.0 mg/dL) 1.5 H Estimated GFR (>60 ml/min) 35 L BUN/Creatinine Ratio (7 - 25 %) 20.0 Glucose (65 - 99 mg/dL) 131 H Calcium (8.4 - 10.2 mg/dL) 9.1 Magnesium (1.6 - 2.3 mg/dL) 1.4 L Iron (37 - 170 ug/dL) 90 TIBC (265 - 497 ug/dL) 281 Ferritin (11.1 - 264 ng/mL) 80.7 Total Bilirubin (0.2 - 1.3 mg/dL) 0.2 AST (14 - 36 U/L) 14 ALT (9 - 52 U/L) 22 Alkaline Phosphatase (<127 U/L) 70 Total Protein (6.3 - 8.2 g/dL) 6.5 Albumin (3.5 - 5.0 g/dL) 3.8 Globulin (1.9 - 4.2 gm/dL) 2.7 Albumin/Globulin Ratio (1.1 - 2.2 %) 1.4 Vitamin B12 (239 - 931 pg/mL) > 1000 H Folate (2.76 - 20.0 ng/mL) 7.2 Hematology CBC w Diff NO MAN DIFF REQ WBC (4.8 - 10.8 /CUMM) 7.0 RBC (4.20 - 5.40 /CUMM) 3.42 L Hgb (12.0 - 16.0 G/DL) 10.3 L Hct (37 - 47 %) 31.2 L MCV (81.0 - 99.0 FL) 91.1 MCH (27.0 - 31.0 PG) 30.1 MCHC (33.0 - 37.0 G/DL) 33.1 RDW (11.5 - 14.5 %) 12.9 Plt Count (130 - 400 /CUMM) 298 MPV (7.4 - 10.4 FL) 8.2 Gran % (42.2 - 75.2 %) 55.7 Lymphocytes % (20.5 - 51.1 %) 29.7 Monocytes % (1.7 - 9.3 %) 5.6 Eosinophils % (0 - 5 %) 8.7 H Basophils % (0.0 - 2.0 %) 0.3 Absolute Granulocytes (1.4 - 6.5 /CUMM) 3.9 Absolute Lymphocytes (1.2 - 3.4 /CUMM) 2.1 Absolute Monocytes (0.10 - 0.60 /CUMM) 0.4 Absolute Eosinophils (0.0 - 0.7 /CUMM) 0.6 Absolute Basophils (0.0 - 0.2 /CUMM) 0 Urines Ur Random Creatinine (mg/dL) 7.9 Ur Random Sodium (30 - 90 mmol/L) 132 H Ur Random Potassium (mmol/L) 11.4 Fraction Sodium Excret (<1% %) 17.8 H Imaging/Other Studies: FINDINGS: LUNG BASES: The visualized lung bases are unremarkable. LIVER, GALLBLADDER, AND BILIARY TREE: The liver is normal in size, shape, and attenuation. No focal hepatic lesion or biliary ductal dilatation is present. Multiple calcified as well as noncalcified gallstones are present, the largest partially calcified gallstone measures 3 cm. There is no CT features of superimposed acute cholecystitis or biliary obstruction seen. PANCREAS: Partially fatty replaced, otherwise unremarkable on these nonenhanced study. SPLEEN: Solitary subcapsular approximately 2 cm maximum dimension hypodensity is noted within the inferior posterior lateral part of the spleen with Hounsfield value of 20, may represent an incidental cyst. ADRENAL GLANDS: Unremarkable. KIDNEYS AND URETERS: The kidneys are normal in size, shape, and attenuation. No hydronephrosis, hydroureter, or calculi seen. No perinephric stranding. BLADDER: Suboptimally distended. GASTROINTESTINAL TRACT: Mild colonic diverticulosis related changes are noted within the sigmoid colon. Significant fecal residual is noted within the large bowel. The appendix is not visualized. The small bowel loops are decompressed. There is a small sliding hiatal hernia present. ABDOMINAL WALL: No significant hernia is appreciated. LYMPH NODES: Normal. VASCULAR: Unremarkable. PELVIC VISCERA: There is a predominantly cystic well-circumscribed left adnexal mass identified, measures 4.5 x 4.3 x 2.2 cm at its maximum anteroposterior by transverse by craniocaudal dimension. Specific note is made of a superimposed solitary nodular partially exophytic component measuring 1.5 cm. Follow-up pelvic ultrasound is recommended for further full detail evaluation. The uterus is unremarkable. There is no right adnexal mass present. There is no free fluid and/or free air present. OSSEOUS STRUCTURES: No suspicious lytic or sclerotic abnormalities. IMPRESSION: 1. Cholelithiasis with the largest partially calcified gallstone measures 3 cm. 2. Subcapsular solitary 2 cm hypodense lesion within the spleen, may represent an incidental cyst. 3. 4.5 cm predominantly cystic, associated with 1.5 cm solid nodular component, left adnexal mass. Follow-up pelvic ultrasound is recommended for further full detail evaluation. Assessment/Plan Assessment/Recommendations: ASSESSMENT: 1. Elevated tTG IgA consistent with Celiac Disease 2. Diarrhea -- patient is taking ibuprofen daily which increases the risk of lymphocytic/collagenous colitis, both of which are associated with Celiac Disease independent of the association with chronic use of NSAIDs 3. Chronic Kidney Disease -- ? related to diabetes, chronic NSAIDs, pre-renal azotemia given copious diarrnea RECOMMENDATIONS: 1. Nutrition consult for counselling regarding Gluten-Free Diet 2. Gluten-Free Diet 3. EGD and Colonoscopy tomorrow 4. NPO after prep 5. Clear liquid diet 6. Golytely 2 liters at 4 pm today and then 7. Golytely 2 liters at 4 am on Thursday 8. Nephrology Consult 9. Follow Laboratory Studies, Check stool for C. Diff, fecal fat, fecal pancreatic elastase, check serum gastrin, B12, folate, serum carotene 10. Long discussion regarding planned workup with patient and her daughter. Consult Acknowledgment - Thank you for your consult request.
--- NOTE | 2017-11-11 14:00 | Cons- Nephrology ---
General Information and HPI Consulting Request Date of Consult: 11/11/17 Requested By: Dinorah Rubin MD Reason for Consult: Hyperkalemia, MARTELL Source of Information: patient, family, old records Exam Limitations: no limitations History of Present Illness: 67-year-old woman admitted yesterday because of the finding of hyperkalemia on outpatient laboratory testing. On admission her potassium was 7.2 and with therapy has come down to 5.6 today. Serum bicarbonate level chelo from a low of 13 to 20 this morning. Her history is notable primarily for a 2 year history of diarrhea which only recently has been diagnosed as probable celiac disease for which she has been on a gluten-free diet with some improvement. Unfortunately, she has never been able to undergo colonoscopy because of unrelenting diarrhea at the time of her studies. She is scheduled to have a colonoscopy later today or tomorrow as feasible. In reviewing previous laboratory data, her potassium was 4.4 in August 2016, 5.9 on 07/23/17, 5.2 on 07/31/17. Anion gap values have generally been within normal limits. Also to be noted is that her renal function has been abnormal. In August 2016 her creatinine was 0.8. In June and July of this year it ranged from 1.3-1.8 and on as an outpatient it was 2.9 on admission here yesterday it was 1.6 and has not significantly changed. She has not been on any potassium supplements but was on lisinopril 20 mg daily and she has been taking 400 mg of Advil 4-5 days per week for many years ( started with less frequent administration about 10 years ago). She has not been exposed to any parenteral contrast or antibiotics and she denies vomiting. There is been no fever or chills. Her background does include a relatively recent diagnosis of diabetes mellitus as well as long-standing hypertension. Urinalysis on this admission showed no protein by dipstick. Past medical history is positive for type 2 diabetes mellitus diagnosed in August, hypertension, asthma, obesity, chronic diarrhea for the past 2 years as noted, cataract surgery, surgery for ectopic in 1979. 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 Allergies/Medications Allergies: Coded Allergies: No Known Allergies (06/09/17) Home Med List: Ascorbic Acid (Vitamin C) 500 MG CAPSULE 1 TAB PO D HEALTH SUPPLEMENT ( Reported) Cholecalciferol (Vitamin D3) 1,000 UNIT TABLET 3 TAB PO D HEALTH SUPPLEMENT ( Reported) Cyanocobalamin (Vitamin B-12) 1,000 MCG TABLET 1.5 TAB PO DAILY HEALTH SUPPLEMENT (Reported) Fluticasone Propionate (Flovent Hfa) 220 MCG AER.W.ADAP 2 PUF INH BID ASTHMA (Reported) Hydroxyzine Hydrochloride (Atarax) 25 MG TAB 2 TAB PO BID ALLERGIES (Reported ) Lisinopril 20 MG TABLET 1 TAB PO QPM HIGH BLOOD PRESSURE (Reported) Review of Systems Review of Systems: Gen.: Appetite good, no unexplained weight loss or weight gain Skin: No rash or jaundice HEENT: No visual or hearing disturbances, no discharge Cardiopulmonary: No shortness of breath, cough, chest pain, orthopnea GI: See HPI : No dysuria, hematuria or other symptoms referable to the urinary tract Musculoskeletal: + arthralgias/arthritis (primarily knees); no myalgias, weakness Neuro: No altered mental status, speech impairment, focal weakness, paresthesias Past History Travel History Traveled to [place] past 21 day No Medical History Blood Transfusion Hx: Yes Neurological: NONE EENT: NONE Cardiovascular: hypertension Respiratory: asthma Gastrointestinal: CELIAC Hepatic: NONE Renal: NONE Musculoskeletal: NONE Psychiatric: NONE Endocrine: diabetes Blood Disorders: NONE Cancer(s): NONE ELEMENTARY ASSISTANT TEACHER/Reproductive: NONE Surgical History Surgical History: non-contributory Psychosocial History Where Do You Live? Home Services at Home: None Smoking Status: Never Smoked Exam & Diagnostic Data Vital Signs and I&O Vital Signs Date Time Temp Pulse Resp B/P B/P Pulse O2 O2 Flow FiO2 Mean Ox Delivery Rate 11/11 1014 Room Air Room Air 11/11 0843 76 144/60 11/11 0657 98.5 76 20 144/60 96 11/10 2303 98.7 76 20 140/78 97 11/10 2100 98.6 76 18 142/65 98 Room Air 11/10 1954 97 Room Air 11/10 1856 98.5 90 17 148/79 97 Room Air Intake & Output 11/11 0400 11/10 0400 11/09 0400 Intake Total 1400 1000 Output Total Balance 1400 1000 Intake, IV 1400 1000 Patient 203 lb 201 lb Weight Weight Bed scale Measurement Method Physical Exam: General: Well-developed, obese white female in NAD Skin: No rash or jaundice HEENT: Conjunctivae pink, sclerae anicteric, mucous membranes dry Neck: Without masses or thyromegaly, no supraclavicular or cervical adenopathy Chest: Clear to P&A Heart: Regular rate and rhythm without S3 or rub Abdomen: Obese, soft and nontender without palpable masses or organomegaly Extremities: Without cyanosis or edema Neuro: Cognitively intact, no focal findings, no asterixis or myoclonus Assessment/Plan Assessment/Recommendations Assessment: 67-year-old woman with what appears to be MARTELL and severe hyperkalemia. The MARTELL is likely on the basis of volume depletion secondary to chronic diarrhea. In addition, she has been taking NSAIDs regularly and has been on an ASHLI inhibitor -both of which potentiate the development of MARTELL in the setting of diarrhea. With regard to the hyperkalemia, the presumption is that it is also related to the combination of ASHLI inhibitor therapy, NSAID abuse and decrease in GFR. Although it is possible that she has underlying type IV RTA, this diagnosis cannot be made at this time given the other potential causes for her hyperkalemia. Parenthetically, the low serum bicarbonate level may be on the basis of GI bicarbonate losses rather than due to renal tubular acidosis. Recommendations: 1. Renal ultrasound 2. Agree with holding ASHLI inhibitor and avoiding NSAIDs 3. Would continue to hydrate with IV fluids; suggest half-normal saline at 125 cc/h 4. Repeat labs in a.m. 5. Agree with magnesium supplementation 6. GI workup per GI Thank you. We will continue to follow along with you.
[2017-11-11 15:09] VITALS: BP 158/82
[2017-11-11 21:50] VITALS: BP 114/56
[2017-11-12 06:47] VITALS: BP 128/60
--- NOTE | 2017-11-12 07:40 | PN- Housestaff ---
[facility] 11/12/17 0740: Subjective Follow-up For: Hyperkalemia(resolved) Chronic diarrhea MARTELL Tele-Events Since Last Visit: Patient remained in sinus rhythm with heart rate between 6087 Subjective: No overnight events. Patient remained afebrile abdomen. Seen and examined this morning. She denied chest pain, palpitation, nausea, vomiting, chill, fever, abdominal pain dysuria. She is n.p.o. and going for and underwent colonoscopy today. He took likely for bowel preparation overnight. As patient's potassium is within normal limits and she did not having any overnight events we will discontinue her telemetry. Review of Systems Constitutional: Denies: chills, fever. EENTM: Reports: no symptoms. Cardiovascular: Denies: chest pain, orthopena, palpitations, syncope. Respiratory: Denies: cough, short of breath, sputum production, wheezing. Gastrointestinal: Denies: abdominal pain, bloating, constipation, distention, vomiting. Genitourinary: Denies: discharge, frequency. Musculoskeletal: Denies: back pain. Neurological/Psychological: Denies: anxiety, confusion, depressed. Objective Last 24 Hrs of Vital Signs/I&O Vital Signs Date Time Temp Pulse Resp B/P B/P Pulse O2 O2 Flow FiO2 Mean Ox Delivery Rate 11/12 0917 82 158/74 11/12 0647 98.3 62 20 128/60 98 Room Air 11/11 2150 98.0 64 12 114/56 97 Room Air 11/11 1509 98.3 67 20 158/82 97 Room Air 11/11 1014 Room Air Room Air Intake & Output 11/12 1600 11/12 0800 11/12 0000 Intake Total 1120 120 Output Total 400 Balance 1120 -280 Intake, IV 1000 Intake, Oral 120 120 Number 3 2 Bowel Movements Output, Urine 400 Physical Exam General Appearance: Alert, Oriented X3, Cooperative Skin Temp/Moisture Exam: Warm/Dry Sepsis Skin Exam (color): Normal for Ethnicity HEENT: Atraumatic, PERRLA, EOMI Neck: Supple Cardiovascular: Normal S1, Normal S2 Lungs: Clear to Auscultation Abdomen: Soft, No Tenderness Neurological: Normal Speech, Strength at 5/5 X4 Ext, Normal Tone Extremities: No Cyanosis, No Edema Assessment/Plan Assessment: 67 YO F with, obese PMH significant for tou-pszzlnu-ejriwvkob diabetes mellitus, hypertension, asthma, chronic diarrhea who presented to emergency department of [facility] with a potassium of 7.2 which was checked outside. Being followed telemetry floor for following problems. Hyperkalemia:(resolved) -Patient has hyperkalemia on admission. Her potassium level was 7.2. Possibly due to renal tubular acidosis, anion gap was within normal limits but r bicarbonate was low. -Patient received calcium gluconate and dextrose with insulin in ED. Her potassium this morning was 5.6 -Holding her lisinopril for hyperkalemia. -Avoid NSAIDs -Patient also received 2 Kayexalate. -Potassium level is 4.6 today. -Follow-up with nephrology recommendations -Her cortisol is within normal limits. -As patient's potassium is within normal limits and there is no overnight event we will discontinue her telemetry. MARTELL:(improving) -Patient has worsening in her kidney function since June 2017. -Patient has her GFR was in 30s and baseline creatinine 1.5 -Acute kidney injury possibly due to prerenal considering her poor oral intake and chronic diarrhea. -IV hydration with D5 half normal saline at the rate of 125 mL/h. -Today her creatinine is 1.1 and GFR is 50 -Follow-up renal function. History of chronic diarrhea: -Patient has positive tissue transglutaminase IgA antibodies consistent with celiac disease. -Considering patient's use of NSAID (ibuprofen) chronically so she is at high risk of lymphocytic/collagenous colitis and both of these are associated with celiac disease independent of association with chronic use of NSAIDs. -Patient will remain on clear liquid and from midnight she will be n.p.o. as patient was not well prepared so scope was not done. We will give her GoLYTELY again and then prepare her for tomorrow. -Follow-up GI recommendation after her scope. History of hypertension: -Continue amlodipine -Holding her lisinopril due to hyperkalemia. History of diabetes: -Continue Accu-Cheks -Her blood sugar was 106 this morning History of asthma: -Continue TRC nebulization as needed. -Continue Flovent inhaler DVT prophylaxis: Mechanical only considering her blood in stool CODE STATUS: Full code Problem List: 1. Hyperkalemia 2. MARTELL (acute kidney injury) Pain Ratin Pain Location: NONE Pain Goal: Remain pain free Pain Plan: PAIN PATHWAY Tomorrow's Labs & Rationales: CBC/BEP/MAG Scottie HOODDinorah 11/12/17 0939: Attending MD Review Statement Attending Statement Attending MD Statement: examined this patient, discuss w/resident/PA/ACCOUNTING RECONCILIATION CLERK, agreed w/resident/PA/ACCOUNTING RECONCILIATION CLERK, reviewed EMR data (avail), discussed with nursing, discussed with case mgmt, reviewed images Attending Assessment/Plan: Appreciate GI evaluation. Patient has celiac disease with ongoing diarrhea with blood. The worry is with the NSAID use whether she also has a component of lymphocytic or collagenous colitis. Dr. Brody feels that the combination of the NSAID and ASHLI with volume depletion is what precipitated the hyperkalemia. At this point her potassium is normal and we can take her off the monitor, we will not restart her ASHLI inhibitor for now and follow-up after endoscopy and colonoscopy.
[2017-11-12 08:29] LABS: ABSOLUTE BASOPHIL COUNT 0 /CUMM (0.0-0.2); ABSOLUTE EOSINOPHIL COUNT 0.6 /CUMM (0.0-0.7); ABSOLUTE GRANULOCYTE CT 3.3 /CUMM (1.4-6.5); ABSOLUTE LYMPH COUNT 1.5 /CUMM (1.2-3.4); ABSOLUTE MONOCYTE COUNT 0.4 /CUMM (0.10-0.60); BASOPHIL % 0.2 % (0.0-2.0); EOSINOPHIL % 10.4 % (0-5); GRANULOCYTE % 56.9 % (42.2-75.2); HEMATOCRIT 29.1 % (37-47); MEAN CORPUSCULAR HGB 30.5 PG (27.0-31.0); MEAN CORPUSCULAR HGB CONC 33.9 G/DL (33.0-37.0); MEAN CORPUSCULAR VOLUME 89.9 FL (81.0-99.0); MEAN PLATELET VOLUME 9.4 FL (7.4-10.4); PLATELET COUNT 269 /CUMM (130-400); RBC DISTRIBUTION WIDTH 12.6 % (11.5-14.5); RED BLOOD CELL CT 3.24 /CUMM (4.20-5.40); WHITE BLOOD CELL COUNT 5.8 /CUMM (4.8-10.8)
--- NOTE | 2017-11-12 08:53 | Patient Discharge Instructions ---
Discharge Instructions General Discharge Information You were seen/treated for: Hyperkalemia Chronic diarrhea Acute on chronic kidney injury Watch for these problems: Chest pain, palpitation, lightheadedness, blood in stool, abdominal pain, decreased urine output and pain without pain. If you experience any of these symptoms please come to ED or call her primary care physician. Special Instructions: Follow-up with your primary care physician in 1 week. Talk to PCP for medication for diabetes as metformin was discontinued by pcp. Follow-up with your groundman/lineman in 1 week biopsy results. Follow-up with colorectal surgeon for growth in the rectum. Her appointment has been scheduled on December 09 at [place] office at [address] Gallegos 's office if you want to change the time of day. Follow-up with your biostatistics manager in 1 week -Lisinopril has been discontinued due to hyperkalemia and MARTELL, please talk to your primary care physician if he wants to resume it or give you alternative medication for blood pressure. Diet Recommended Diet: Gluten Free Activity Activity Self Limited: Yes Acute Coronary Syndrome Inclusion Criteria At DC or during hospital stay patient has or had the following: ACS DIAGNOSIS No Discharge Core Measures Meds if any: Prescribed or Continued at Discharge Meds if any: NOT Prescribed or Continued at Discharge Congestive Heart Failure Inclusion Criteria At DC or during hospital stay patient has or had the following: CHF DIAGNOSIS No Discharge Core Measures Meds if any: Prescribed or Continued at Discharge Meds if any: NOT Prescribed or Continued at Discharge Cerebrovascular accident Inclusion Criteria At DC or during hospital stay patient has or had the following: CVA/TIA Diagnosis No Discharge Core Measures Meds if any: Prescribed or Continued at Discharge Meds if any: NOT Prescribed or Continued at Discharge Venous thromboembolism Inclusion Criteria VTE Diagnosis No VTE Type NONE VTE Confirmed by (Test) NONE Discharge Core Measures - Per Current guidelines, there needs to be overlap - treatment for the first 5 days of Warfarin therapy. - If discharged on Warfarin prior to 5 days of - overlap therapy, the patient will need to be - assessed for post discharge needs including - *Post discharge parental anticoagulation - *Warfarin and/or parental anticoagulation education - *Follow up date to check INR post discharge At least 5 days overlap therapy as Inpatient No Meds if any: Prescribed or Continued at Discharge Note: Overlap Therapy is Warfarin and Anticoagulant Meds if any: NOT Prescribed or Continued at Discharge
--- NOTE | 2017-11-12 13:41 | PN- Gastroenterology ---
Assessment/Plan GI Assessment/Recommendations: ASSESSMENT: 1. Celiac Disease -- Patient following a gluten-free diet 2. Diarrhea -- ? whether patient with concurrent lymphocytic colitis due to chronic use NSAIDs 3. Eosinophilia -- increased %age on CBC 4. Anemia 5. Increased Creatinine -- returning to baseline 6. Diabetes Mellitus RECOMMENDATIONS: 1. Check Absolute Eosinophil Count 2. EGD and Colonoscopy tomorrow 3. Give Dulcolax 2 tablets now and then 2 tablets at bedtime 4. Repeat GoLYTELY Prep with 2 liters tonight at 5 p.m. and then 5. GoLYTELY 2 liters at 4 a.m. on Thursday a.m. 6. Repeat serum tTG IgA 7. Check iron studies, B12 and Folate 8. Check stool for O&P Subjective Subjective: Patient is not well-prepped. Today despite a split-dose, GoLYTELY prep as well as 3 Tap Water Enemas, patient still had copious amounts of opaque liquid brown stool. Objective Vital Signs and I&Os Vital Signs Date Time Temp Pulse Resp B/P B/P Pulse O2 O2 Flow FiO2 Mean Ox Delivery Rate 11/12 0917 82 158/74 11/12 0647 98.3 62 20 128/60 98 Room Air 11/11 2150 98.0 64 12 114/56 97 Room Air 11/11 1509 98.3 67 20 158/82 97 Room Air Intake & Output 11/12 1600 11/12 0400 11/11 1600 11/11 0400 11/10 1600 11/10 0400 Intake Total 6043 280 7618 1000 Output Total 400 Balance 1120 -280 2000 1000 Intake, IV 1000 1400 1000 Intake, Oral 120 120 600 Number 3 2 0 Bowel Movements Output, Urine 400 Patient 203 lb 201 lb Weight Weight Bed scale Measurement Method Physical Exam General Appearance: no apparent distress, comfortable Neck: supple Cardiovascular: regular rate/rhythm Abdomen: normal bowel sounds, soft, non-tender Extremities: normal inspection Current Medications: Current Medications Sig/Idania Start time Last Medication Dose Route Stop Time Status Admin Amlodipine Besylate 10 MG DAILY 11/11 0900 AC 11/12 PO 0917 Dextrose/Sodium 1,000 ML Q8H 11/11 1515 AC 11/12 Chloride IV 0918 Insulin Human Regular 0 Q6 11/11 2359 AC 11/12 SC 1115 Magnesium Oxide 400 MG ONE ONE 11/11 1545 DC 11/11 PO 11/11 1546 1717 Magnesium Sulfate 1 GM ONCE ONE 11/12 1000 AC 11/12 Dextrose/Water 100 ML IV 11/12 1359 1021 Polyethylene Glycol 1 GAL 1600,0400 11/11 1600 DC 11/12 PO 0403 Results Pertinent Lab Results: Laboratory Tests 11/12 11/11 11/11 0714 1540 0626 Chemistry Sodium (137 - 145 mmol/L) 138 141 143 Potassium (3.5 - 5.1 mmol/L) 4.6 4.9 5.6 H Chloride (98 - 107 mmol/L) 106 110 H 115 H Carbon Dioxide (22 - 30 mmol/L) 22 21 L 20 L Anion Gap (5 - 16) 10 11 8 BUN (7 - 17 mg/dL) 16 22 H 23 H Creatinine (0.5 - 1.0 mg/dL) 1.1 H 1.4 H 1.5 H Estimated GFR (>60 ml/min) 50 L 38 L 35 L BUN/Creatinine Ratio (7 - 25 %) 14.5 15.7 15.3 Magnesium (1.6 - 2.3 mg/dL) 1.4 L 1.6 Cortisol AM Sample (4.46 - 22.7 ug/dL) 9.5 Hematology CBC w Diff NO MAN DIFF REQ WBC (4.8 - 10.8 /CUMM) 5.8 RBC (4.20 - 5.40 /CUMM) 3.24 L Hgb (12.0 - 16.0 G/DL) 9.9 L Hct (37 - 47 %) 29.1 L MCV (81.0 - 99.0 FL) 89.9 MCH (27.0 - 31.0 PG) 30.5 MCHC (33.0 - 37.0 G/DL) 33.9 RDW (11.5 - 14.5 %) 12.6 Plt Count (130 - 400 /CUMM) 269 MPV (7.4 - 10.4 FL) 9.4 Gran % (42.2 - 75.2 %) 56.9 Lymphocytes % (20.5 - 51.1 %) 26.0 Monocytes % (1.7 - 9.3 %) 6.5 Eosinophils % (0 - 5 %) 10.4 H Basophils % (0.0 - 2.0 %) 0.2 Absolute Granulocytes (1.4 - 6.5 /CUMM) 3.3 Absolute Lymphocytes (1.2 - 3.4 /CUMM) 1.5 Absolute Monocytes (0.10 - 0.60 /CUMM) 0.4 Absolute Eosinophils (0.0 - 0.7 /CUMM) 0.6 Absolute Basophils (0.0 - 0.2 /CUMM) 0 11/11 11/11 11/11 0626 0145 0018 Chemistry Sodium (137 - 145 mmol/L) 141 Potassium (3.5 - 5.1 mmol/L) 6.0 *H 6.9 *H Chloride (98 - 107 mmol/L) 118 H Carbon Dioxide (22 - 30 mmol/L) 13 L Anion Gap (5 - 16) 10 BUN (7 - 17 mg/dL) 28 H Creatinine (0.5 - 1.0 mg/dL) 1.6 H Estimated GFR (>60 ml/min) 32 L BUN/Creatinine Ratio (7 - 25 %) 17.5 Magnesium (1.6 - 2.3 mg/dL) 1.6 Renin Pending Aldosterone Pending Hematology CBC w Diff NO MAN DIFF REQ WBC (4.8 - 10.8 /CUMM) 6.8 RBC (4.20 - 5.40 /CUMM) 3.26 L Hgb (12.0 - 16.0 G/DL) 10.0 L Hct (37 - 47 %) 29.9 L MCV (81.0 - 99.0 FL) 91.8 MCH (27.0 - 31.0 PG) 30.6 MCHC (33.0 - 37.0 G/DL) 33.3 RDW (11.5 - 14.5 %) 12.6 Plt Count (130 - 400 /CUMM) 283 MPV (7.4 - 10.4 FL) 8.9 Gran % (42.2 - 75.2 %) 57.8 Lymphocytes % (20.5 - 51.1 %) 27.4 Monocytes % (1.7 - 9.3 %) 6.3 Eosinophils % (0 - 5 %) 7.7 H Basophils % (0.0 - 2.0 %) 0.8 Absolute Granulocytes (1.4 - 6.5 /CUMM) 4.0 Absolute Lymphocytes (1.2 - 3.4 /CUMM) 1.9 Absolute Monocytes (0.10 - 0.60 /CUMM) 0.4 Absolute Eosinophils (0.0 - 0.7 /CUMM) 0.5 Absolute Basophils (0.0 - 0.2 /CUMM) 0.1 11/10 Urines Urine Color (YEL,AMB,STR) STRAW Urine Clarity (CLEAR) CLEAR Urine pH (5.0 - 8.0) 6.0 Ur Specific [place] (1.001 - 1.035) 1.015 Urine Protein (NEG,<30 MG/DL) NEG Urine Ketones (NEG) NEG Urine Nitrite (NEG) NEG Urine Bilirubin (NEG) NEG Urine Urobilinogen (0.1 - 1.0 EU/dl) 0.2 Ur Leukocyte Esterase (NEG) NEG Ur Microscopic SEDIMENT EXAMINED Urine RBC (0 - 5 /HPF) RARE Ur Epithelial Cells (NONE,FEW) RARE Urine Bacteria (NEG/NONE) RARE H Urine Hemoglobin (NEG) TRACE-INTACT Ur Random Creatinine (mg/dL) 7.9 Ur Random Sodium (30 - 90 mmol/L) 132 H Ur Random Potassium (mmol/L) 11.4 Fraction Sodium Excret (<1% %) 17.8 H Urine Glucose (N MG/DL) NEG 11/10 190 Chemistry Sodium (137 - 145 mmol/L) 141 Potassium (3.5 - 5.1 mmol/L) 6.7 *H Chloride (98 - 107 mmol/L) 115 H Carbon Dioxide (22 - 30 mmol/L) 19 L Anion Gap (5 - 16) 7 BUN (7 - 17 mg/dL) 30 H Creatinine (0.5 - 1.0 mg/dL) 1.5 H Estimated GFR (>60 ml/min) 35 L BUN/Creatinine Ratio (7 - 25 %) 20.0 Glucose (65 - 99 mg/dL) 131 H Calcium (8.4 - 10.2 mg/dL) 9.1 Magnesium (1.6 - 2.3 mg/dL) 1.4 L Iron (37 - 170 ug/dL) 90 TIBC (265 - 497 ug/dL) 281 Ferritin (11.1 - 264 ng/mL) 80.7 Total Bilirubin (0.2 - 1.3 mg/dL) 0.2 AST (14 - 36 U/L) 14 ALT (9 - 52 U/L) 22 Alkaline Phosphatase (<127 U/L) 70 Total Protein (6.3 - 8.2 g/dL) 6.5 Albumin (3.5 - 5.0 g/dL) 3.8 Globulin (1.9 - 4.2 gm/dL) 2.7 Albumin/Globulin Ratio (1.1 - 2.2 %) 1.4 Vitamin B12 (239 - 931 pg/mL) > 1000 H Folate (2.76 - 20.0 ng/mL) 7.2 Hematology CBC w Diff NO MAN DIFF REQ WBC (4.8 - 10.8 /CUMM) 7.0 RBC (4.20 - 5.40 /CUMM) 3.42 L Hgb (12.0 - 16.0 G/DL) 10.3 L Hct (37 - 47 %) 31.2 L MCV (81.0 - 99.0 FL) 91.1 MCH (27.0 - 31.0 PG) 30.1 MCHC (33.0 - 37.0 G/DL) 33.1 RDW (11.5 - 14.5 %) 12.9 Plt Count (130 - 400 /CUMM) 298 MPV (7.4 - 10.4 FL) 8.2 Gran % (42.2 - 75.2 %) 55.7 Lymphocytes % (20.5 - 51.1 %) 29.7 Monocytes % (1.7 - 9.3 %) 5.6 Eosinophils % (0 - 5 %) 8.7 H Basophils % (0.0 - 2.0 %) 0.3 Absolute Granulocytes (1.4 - 6.5 /CUMM) 3.9 Absolute Lymphocytes (1.2 - 3.4 /CUMM) 2.1 Absolute Monocytes (0.10 - 0.60 /CUMM) 0.4 Absolute Eosinophils (0.0 - 0.7 /CUMM) 0.6 Absolute Basophils (0.0 - 0.2 /CUMM) 0
[2017-11-12 15:20] VITALS: BP 116/60
--- NOTE | 2017-11-12 15:29 | Discharge Summary ---
See Addendum Visit Information Visit Dates Admission Date: 11/10/17 Discharge Date: 11/13/17 Hospital Course Course Attending Physician: Scottie HOOD,Dinorah Redd Primary Care Physician: Yina HOOD,Korin Arroyo Hospital Course: 67 YO F with, obese PMH significant for sva-zfqtuxy-hszubplhe diabetes mellitus, hypertension, asthma, chronic diarrhea who presented to emergency department of [facility] with a potassium of 7.2 which was checked outside. ED course; Vitals: Temperature 98.5, pulse 90, respiratory rate 17, blood pressure 148/79, oxygen saturation 97% on room air Labs: WBC count 7.0, hemoglobin 10.3, hematocrit 31.2, platelet count 290, sodium 141, potassium 6.7, BUN 30, creatinine 1.5, glucose 131, calcium 9.1, anion gap 7, AST 14, ALT 22, albumin 3.8, bicarbonate 19, chloride 115 Hyperkalemia: Patient was admitted due to hyperkalemia, on admission her potassium was 7.2. Possibly due to NSAID and lisinopril use. Her NSAIDs and lisinopril were discontinued. Patient received dextrose and insulin in ED with calcium gluconate. Patient also received 2 Kayexalate. Potassium level came down to 5.6. Patient was evaluated for renal tubular acidosis. Nephrology consult was placed and recommendations were followed. Per nephrology patient had less likely RTA as her bicarbonate loss could be due to GI as patient having chronic diarrhea. But we will follow her aldosterone and renin levels for RTA type IV. Patient's potassium level is within normal limits. Her lisinopril and NSAIDs were discontinued and patient was advised to avoid these medications. Patient will follow her primary care physician and nephrology for further recommendations. Acute kidney injury: Although patient has worsening of her kidney function since June 2017 as her creatinine was close to 1.5 and GFR was in 30s. Patient's acute kidney injury was due to dehydration as she was losing water through diarrhea and also she was on lisinopril. Patient was given IV fluid D5 half normal saline and she responded to fluids. Her kidney function came back within normal limits. NSAIDs and lisinopril were discontinued. Later on her IV fluids were discontinued and patient was encouraged to drink oral fluids. Patient will follow nephrology as outpatient for further recommendations. Rectal tumor status post colonoscopy: Patient had routine colonoscopy for cancer screening and a rectal mass was found that was nearly obstructing the rectum. Biopsies were taken and patient was instructed to follow a colorectal surgeon as outpatient. Patient was given colorectal surgery referral to follow as outpatient. Her appointment was made with Dr. Gallegos's office on December 09 at 1 PM. Patient was instructed to call Dr. Gallegos office and confirm the appointment or if she wants to change the day or time. Patient will plan for getting CT scan abdomen/pelvis with IV contrast for staging on her clinical visit with colorectal surgeon. History of celiac disease s/p colonoscopy and endoscopy: Patient has chronic diarrhea and she was recently diagnosed with celiac disease as her tissue transglutaminase antibodies were positive. Patient was kept on gluten-free diet. patient was following GI as outpatient. GI tried 3 times to do colonoscopy but patient's bowel was not well prepared. GI is evaluated about collagenous colitis along with celiac disease as patient was chronically using NSAIDs. Patient's bowel was prepared with GoLYTELY and Dulcolax during the hospital stay and she went through colonoscopy and endoscopic. Patient's endoscopy remained normal but during colonoscopy a rectal mass was found. Biopsies were taken and patient was instructed to follow GI as outpatient for biopsy results. Patient was given colorectal surgery referral to follow as outpatient. Her appointment was made with Dr. Gallegos's office on December 09 at 1 PM. Patient was instructed to call Dr. Gallegos office and confirm the appointment or if she wants to change the day or time. Patient will plan for getting CT scan abdomen/pelvis with IV contrast for staging on her clinical visit with colorectal surgeon. History of hypertension: Her lisinopril was discontinued due to hyperkalemia and MARTELL. Patient was given amlodipine and she will be discharged with 10 mg of amlodipine for hypertension. Her blood pressure remained under control during hospital stay. Patient was instructed to follow her primary care physician for further recommendations for antihypertensive medications. History of diabetes: Patient has history of type 2 diabetes but recently her metformin was discontinued before hospital admission considering her worsening kidney function. Her Accu-Cheks were checked and her blood glucose level remained within normal limits during hospital stay. Patient was advised to follow her primary care physician after the discharge. Talk to the primary care physician if she needs any alternative for diabetes or metformin to be started again. History of asthma: Patient received her nebulizer treatment during hospital stay and TRC nebulization as needed. She remained stable. DVT prophylaxis: Mechanical only considering her blood in stool CODE STATUS: Full code Allergies: Coded Allergies: No Known Allergies (06/09/17) Significant Procedures: Colonoscopy Procedure Procedure Date: 11/13/17 Procedure Type: flexible sigmoidoscopy with biopsy (following EGD) Smt Machine Operator: Merritt Nolasco M.D. ASA Classification: III Indications: Colon cancer screening (baseline) Diarrhea Eosinophilia Instrument (Colonoscope): single channel Meds Received: MAC Patient's Tolerance: good Complications: none Extent Reached: rectum Prep: N/A Procedure: Following the initial EGD, the patient was placed in the Macias position, and medicated. Examination of the rectum revealed external hemorrhoids, and decreased sphincter tone. The Olympus high-definition variable stiffness colonoscope was inserted through the anus and advanced to the mid rectum. Findings: The distal rectum was normal. In the mid rectum at the area of the inferior valve, was a circumferential tumor. There was a tight stricture, friability, and firmness. It was not possible to traverse with the colonoscope. Multiple biopsies were obtained. Impression: Rectal tumor, nearly obstructing Recommendations: Await pathology Pending above, surgical evaluation Pending above, CT scan of the abdomen and pelvis with IV contrast, for staging May benefit from stent/bowel preparation/resection Endoscopy Procedure Procedure Date: 11/13/17 Procedure Type: EGD w/biopsy (preceding colonoscopy) Smt Machine Operator: Merritt Nolasco M.D. ASA Classification: III Indications: Diarrhea Eosinophilia Positive celiac serologies Instrument: diagnostic gastroscope [place] [facility] [place]'s Tolerance: good Complications: none Extent Reached: third part of duodenum Procedure: The patient signed informed consent for EGD and colonoscopy, and was medicated. Lidocaine pharyngeal spray was administered. Pulse oximetry, blood pressure and cardiac monitoring were performed continuously throughout the procedure. The Olympus high-definition gastroscope was inserted into the mouth and advanced to the duodenum. Retroflexion was performed within the stomach to examine the cardia. Careful examination was performed. Findings: The esophagus had normal caliber and contour. The mucosa was normal throughout. There were no varices. The GE junction at 35 cm was normal. There was a small hiatal hernia. The stomach had normal distention and active peristalsis. The cardia was normal. The mucosa and folds were normal throughout. Biopsies were obtained from body, incisura and antrum. The pyloric channel was normal. The duodenal bulb was normal. 2 biopsies were obtained. The mucosa and folds of the second and third portions of the duodenum were normal, and villi were seen. 6 biopsies were obtained from these areas. Impression: Normal EGD No gross gastropathy; biopsies obtained No gross enteropathy; biopsies obtained Recommendations: Await pathology Gluten-free diet Pertinent Lab Results: Renal ultrasound on 11/12/2017: IMPRESSION: Normal sonographic appearance of the kidneys. No acute findings.. A 4.4 cm cystic lesion in the left hemipelvis with subtle mural nodularity, corresponding to the abnormality seen on prior CT. Follow-up gynecological consultation is advised this warrants further workup on a nonemergent basis. 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 Additional Diagnosis: History of hypertension History of diabetes History of asthma Discharge Disposition: home or self care Discharge Instructions General Discharge Information Code Status: Full Code Patient's Diet: Gluten-free diet Patient's Activity: Self-limited Follow-Up Instructions/Appts: Follow-up with your primary care physician in 1 week Follow-up with your senior hardware engineer in 1 week Follow-up with nephrology in 1 week Medications at Discharge Discharge Medications: Stop taking the following medications: Lisinopril (Lisinopril) 20 MG TABLET ORAL Every night Qty = 90 Continue taking these medications: Fluticasone Propionate (Flovent Hfa) 220 MCG AER.W.ADAP 2 Puff Inhale through mouth TWICE DAILY Qty = 12 Comments: NOT GIVEN DURING THIS HOSPITAL STAY Cyanocobalamin (Vitamin B-12) 1,000 MCG TABLET 1.5 Tablet ORAL DAILY Comments: NOT GIVEN DURING THIS HOSPITAL STAY Ascorbic Acid (Vitamin C) 500 MG CAPSULE 1 Tablet ORAL Every Day Comments: NOT GIVEN DURING THIS HOSPITAL STAY Cholecalciferol (Vitamin D3) 1,000 UNIT TABLET 3 Tablet ORAL Every Day Comments: NOT GIVEN DURING THIS HOSPITAL STAY Hydroxyzine Hydrochloride (Atarax) 25 MG TAB 2 Tablet ORAL TWICE DAILY Days = 1 Comments: NOT GIVEN DURING THIS HOSPITAL STAY Start taking the following new medications: Amlodipine Besylate (Norvasc) 10 MG TABLET 1 Tablet ORAL DAILY Qty = 30 No Refills Instructions: . Comments: Last Taken: 11/13/17 Time: 9:00 AM Copies To: Bibiana Freedman MD; Yina HOOD,Korin Arroyo; Ronn HOOD,Evgeny Sargent
--- NOTE | 2017-11-12 16:56 | PN- Nephrology ---
Assessment/Plan Nephrology Assessment: 1. MARTELL secondary to volume depletion while on ASHLI inhibitor and NSAID therapy - resolved with IV fluids and discontinuation of offending medications 2. Hyperkalemia secondary to ASHLI inhibitor, NSAID and MARTELL -resolved 3. Non-anion gap metabolic acidosis secondary to diarrhea -resolved Suggestion: 1. Maintain adequate hydration; okay to DC IV fluids if taking p.o. well 2. GI evaluation per GI I will sign off. Please call if needed again. Thank you for asking me to see this patient. Subjective Subjective: She is not having any diarrhea but continues to have difficulty getting adequately prepped for her colonoscopy. Renal function has essentially normalized as have her serum potassium and CO2 levels. Objective Vital Signs and I&Os Vital Signs Date Time Temp Pulse Resp B/P B/P Pulse O2 O2 Flow FiO2 Mean Ox Delivery Rate 11/12 1520 97.8 52 18 116/60 98 Room Air 11/12 0917 82 158/74 11/12 0647 98.3 62 20 128/60 98 Room Air 11/11 2150 98.0 64 12 114/56 97 Room Air Intake & Output 11/12 1600 11/12 0400 11/11 1600 11/11 0400 11/10 1600 11/10 0400 Intake Total 2870 120 2000 1000 Output Total 1025 400 Balance 1845 -280 2000 1000 Intake, IV 1850 1400 1000 Intake, Oral 1020 120 600 Number 9 2 0 Bowel Movements Output, Urine 1025 400 Patient 203 lb 201 lb Weight Weight Bed scale Measurement Method Physical Exam: General: Well-developed, obese white female in NAD Skin: No rash or jaundice HEENT: Conjunctivae pink, sclerae anicteric, mucous membranes moist Neck: Without masses or thyromegaly, no supraclavicular or cervical adenopathy Chest: Clear to P&A Heart: Regular rate and rhythm without S3 or rub Abdomen: Obese, soft and nontender without palpable masses or organomegaly Extremities: Without cyanosis or edema Neuro: Cognitively intact, no focal findings, no asterixis or myoclonus Results Pertinent Lab Results: Laboratory Tests 11/12 11/12 11/11 1450 0714 1540 Chemistry Sodium (137 - 145 mmol/L) 138 141 Potassium (3.5 - 5.1 mmol/L) 4.6 4.9 Chloride (98 - 107 mmol/L) 106 110 H Carbon Dioxide (22 - 30 mmol/L) 22 21 L Anion Gap (5 - 16) 10 11 BUN (7 - 17 mg/dL) 16 22 H Creatinine (0.5 - 1.0 mg/dL) 1.1 H 1.4 H Estimated GFR (>60 ml/min) 50 L 38 L BUN/Creatinine Ratio (7 - 25 %) 14.5 15.7 Magnesium (1.6 - 2.3 mg/dL) 1.4 L 1.6 Hematology CBC w Diff NO MAN DIFF REQ WBC (4.8 - 10.8 /CUMM) 5.8 RBC (4.20 - 5.40 /CUMM) 3.24 L Hgb (12.0 - 16.0 G/DL) 9.9 L Hct (37 - 47 %) 29.1 L MCV (81.0 - 99.0 FL) 89.9 MCH (27.0 - 31.0 PG) 30.5 MCHC (33.0 - 37.0 G/DL) 33.9 RDW (11.5 - 14.5 %) 12.6 Plt Count (130 - 400 /CUMM) 269 MPV (7.4 - 10.4 FL) 9.4 Gran % (42.2 - 75.2 %) 56.9 Lymphocytes % (20.5 - 51.1 %) 26.0 Monocytes % (1.7 - 9.3 %) 6.5 Eosinophils % (0 - 5 %) 10.4 H Basophils % (0.0 - 2.0 %) 0.2 Absolute Granulocytes (1.4 - 6.5 /CUMM) 3.3 Absolute Lymphocytes (1.2 - 3.4 /CUMM) 1.5 Absolute Monocytes (0.10 - 0.60 /CUMM) 0.4 Absolute Eosinophils (0.0 - 0.7 /CUMM) 0.6 Absolute Basophils (0.0 - 0.2 /CUMM) 0 Immunology Tiss Transglutamin IgG Pending Tiss Transglutamin IgA Pending 11/11 11/11 11/11 11/11 0626 0626 0145 0018 Chemistry Sodium (137 - 145 mmol/L) 143 141 Potassium (3.5 - 5.1 mmol/L) 5.6 H 6.0 *H 6.9 *H Chloride (98 - 107 mmol/L) 115 H 118 H Carbon Dioxide (22 - 30 mmol/L) 20 L 13 L Anion Gap (5 - 16) 8 10 BUN (7 - 17 mg/dL) 23 H 28 H Creatinine (0.5 - 1.0 mg/dL) 1.5 H 1.6 H Estimated GFR (>60 ml/min) 35 L 32 L BUN/Creatinine Ratio (7 - 25 %) 15.3 17.5 Magnesium (1.6 - 2.3 mg/dL) 1.6 Renin Pending Aldosterone Pending Cortisol AM Sample (4.46 - 22.7 ug/dL) 9.5 Hematology CBC w Diff NO MAN DIFF REQ WBC (4.8 - 10.8 /CUMM) 6.8 RBC (4.20 - 5.40 /CUMM) 3.26 L Hgb (12.0 - 16.0 G/DL) 10.0 L Hct (37 - 47 %) 29.9 L MCV (81.0 - 99.0 FL) 91.8 MCH (27.0 - 31.0 PG) 30.6 MCHC (33.0 - 37.0 G/DL) 33.3 RDW (11.5 - 14.5 %) 12.6 Plt Count (130 - 400 /CUMM) 283 MPV (7.4 - 10.4 FL) 8.9 Gran % (42.2 - 75.2 %) 57.8 Lymphocytes % (20.5 - 51.1 %) 27.4 Monocytes % (1.7 - 9.3 %) 6.3 Eosinophils % (0 - 5 %) 7.7 H Basophils % (0.0 - 2.0 %) 0.8 Absolute Granulocytes (1.4 - 6.5 /CUMM) 4.0 Absolute Lymphocytes (1.2 - 3.4 /CUMM) 1.9 Absolute Monocytes (0.10 - 0.60 /CUMM) 0.4 Absolute Eosinophils (0.0 - 0.7 /CUMM) 0.5 Absolute Basophils (0.0 - 0.2 /CUMM) 0.1 11/10 Urines Urine Color (YEL,AMB,STR) STRAW Urine Clarity (CLEAR) CLEAR Urine pH (5.0 - 8.0) 6.0 Ur Specific [place] (1.001 - 1.035) 1.015 Urine Protein (NEG,<30 MG/DL) NEG Urine Ketones (NEG) NEG Urine Nitrite (NEG) NEG Urine Bilirubin (NEG) NEG Urine Urobilinogen (0.1 - 1.0 EU/dl) 0.2 Ur Leukocyte Esterase (NEG) NEG Ur Microscopic SEDIMENT EXAMINED Urine RBC (0 - 5 /HPF) RARE Ur Epithelial Cells (NONE,FEW) RARE Urine Bacteria (NEG/NONE) RARE H Urine Hemoglobin (NEG) TRACE-INTACT Ur Random Creatinine (mg/dL) 7.9 Ur Random Sodium (30 - 90 mmol/L) 132 H Ur Random Potassium (mmol/L) 11.4 Fraction Sodium Excret (<1% %) 17.8 H Urine Glucose (N MG/DL) NEG 11/10 1907 Chemistry Sodium (137 - 145 mmol/L) 141 Potassium (3.5 - 5.1 mmol/L) 6.7 *H Chloride (98 - 107 mmol/L) 115 H Carbon Dioxide (22 - 30 mmol/L) 19 L Anion Gap (5 - 16) 7 BUN (7 - 17 mg/dL) 30 H Creatinine (0.5 - 1.0 mg/dL) 1.5 H Estimated GFR (>60 ml/min) 35 L BUN/Creatinine Ratio (7 - 25 %) 20.0 Glucose (65 - 99 mg/dL) 131 H Calcium (8.4 - 10.2 mg/dL) 9.1 Magnesium (1.6 - 2.3 mg/dL) 1.4 L Iron (37 - 170 ug/dL) 90 TIBC (265 - 497 ug/dL) 281 Ferritin (11.1 - 264 ng/mL) 80.7 Total Bilirubin (0.2 - 1.3 mg/dL) 0.2 AST (14 - 36 U/L) 14 ALT (9 - 52 U/L) 22 Alkaline Phosphatase (<127 U/L) 70 Total Protein (6.3 - 8.2 g/dL) 6.5 Albumin (3.5 - 5.0 g/dL) 3.8 Globulin (1.9 - 4.2 gm/dL) 2.7 Albumin/Globulin Ratio (1.1 - 2.2 %) 1.4 Vitamin B12 (239 - 931 pg/mL) > 1000 H Folate (2.76 - 20.0 ng/mL) 7.2 Hematology CBC w Diff NO MAN DIFF REQ WBC (4.8 - 10.8 /CUMM) 7.0 RBC (4.20 - 5.40 /CUMM) 3.42 L Hgb (12.0 - 16.0 G/DL) 10.3 L Hct (37 - 47 %) 31.2 L MCV (81.0 - 99.0 FL) 91.1 MCH (27.0 - 31.0 PG) 30.1 MCHC (33.0 - 37.0 G/DL) 33.1 RDW (11.5 - 14.5 %) 12.9 Plt Count (130 - 400 /CUMM) 298 MPV (7.4 - 10.4 FL) 8.2 Gran % (42.2 - 75.2 %) 55.7 Lymphocytes % (20.5 - 51.1 %) 29.7 Monocytes % (1.7 - 9.3 %) 5.6 Eosinophils % (0 - 5 %) 8.7 H Basophils % (0.0 - 2.0 %) 0.3 Absolute Granulocytes (1.4 - 6.5 /CUMM) 3.9 Absolute Lymphocytes (1.2 - 3.4 /CUMM) 2.1 Absolute Monocytes (0.10 - 0.60 /CUMM) 0.4 Absolute Eosinophils (0.0 - 0.7 /CUMM) 0.6 Absolute Basophils (0.0 - 0.2 /CUMM) 0
--- NOTE | 2017-11-12 20:39 | ULTRASOUND REPORT ---
EXAMINATION: US RETROPERITONEAL COMPLETE (RENAL) CLINICAL INFORMATION: Glomerulonephritis. hyperkalemia. COMPARISON: 11/08/2017 TECHNIQUE: Real-time imaging of the kidneys and bladder. FINDINGS: RIGHT KIDNEY: 8.7 x 4.2 x 3.8 cm (SAG x AP x TRV). In comparison with the recent CT, the longitudinal dimension is likely closer to 10 cm. The kidney is normal in size, contour, and echogenicity. Renal cortical thickness is normal. No calculi or focal parenchymal lesions. No hydronephrosis. LEFT KIDNEY: 10.7 x 4.8 x 4.6 cm (SAG x AP x TRV). The kidney is normal in size, contour, and echogenicity. Renal cortical thickness is normal. No calculi or focal parenchymal lesions. No hydronephrosis. The cystic focus seen in the left upper pole on the recent CT isn't apparent on ultrasound. BLADDER: Partially distended. Bilateral ureteral jets are not demonstrated. Bladder volume is 69 mL. Additional findings: There is a cystic focus in the left hemipelvis measuring approximately 4.4 x 4.4 x 4.2 cm which corresponds to the adnexal cyst seen on the recent CT. There is subtle peripheral nodularity to this cyst. IMPRESSION: Normal sonographic appearance of the kidneys. No acute findings.. A 4.4 cm cystic lesion in the left hemipelvis with subtle mural nodularity, corresponding to the abnormality seen on prior CT. Follow-up gynecological consultation is advised this warrants further workup on a nonemergent basis.
[2017-11-12 22:38] VITALS: BP 128/64
--- NOTE | 2017-11-13 07:07 | PN- Housestaff ---
JonnyAustin 11/13/17 0707: Subjective Follow-up For: Hyperkalemia(resolved) Chronic diarrhea MARTELL (improving) Tele-Events Since Last Visit: off tele Subjective: No overnight events. Patient remained afebrile. Seen and examined this morning. Patient is n.p.o. and we are preparing her for scope. Her stool is still not clear. Patient received Dulcolax and GoLYTELY yesterday. Patient denied chest pain, palpitation, nausea, vomiting, chill, fever, abdominal pain dysuria. Patient is on room air maintaining saturation 98%. Review of Systems Constitutional: Denies: chills, fever. EENTM: Reports: no symptoms. Cardiovascular: Denies: chest pain, orthopena, palpitations, syncope. Respiratory: Denies: cough, short of breath, sputum production. Gastrointestinal: Denies: abdominal pain, constipation, nausea, vomiting. Genitourinary: Denies: discharge, frequency. Musculoskeletal: Denies: back pain. Neurological/Psychological: Reports: no symptoms. Objective Last 24 Hrs of Vital Signs/I&O Vital Signs Date Time Temp Pulse Resp B/P B/P Pulse O2 O2 Flow FiO2 Mean Ox Delivery Rate 11/13 0744 84 156/84 11/13 0715 97.6 82 18 148/76 98 Room Air 11/12 2238 98.2 64 18 128/64 98 Room Air 11/12 1520 97.8 52 18 116/60 98 Room Air 11/12 0917 82 158/74 Intake & Output 11/13 1600 11/13 0800 11/13 0000 Intake Total 700 Output Total 1600 900 Balance -1600 -200 Intake, Oral 700 Output, Stool 1200 900 Output, Urine 400 Patient 197 lb Weight Weight Bed scale Measurement Method Physical Exam General Appearance: Alert, Oriented X3, Cooperative Skin Temp/Moisture Exam: Warm/Dry Sepsis Skin Exam (color): Normal for Ethnicity HEENT: Atraumatic, PERRLA, EOMI Neck: Supple Cardiovascular: Normal S1, Normal S2 Lungs: Clear to Auscultation Abdomen: Soft, No Tenderness Neurological: Normal Speech, Strength at 5/5 X4 Ext, Normal Tone Extremities: B/L PEDAL EDEMA Assessment/Plan Assessment: 67 YO F with, obese PMH significant for jql-jvfapva-oaepgomwt diabetes mellitus, hypertension, asthma, chronic diarrhea who presented to emergency department of [facility] with a potassium of 7.2 which was checked outside. Being followed telemetry floor for following problems. Hyperkalemia:(resolved) -Patient has hyperkalemia on admission. Her potassium level was 7.2. Possibly due to renal tubular acidosis, anion gap was within normal limits but r bicarbonate was low. -Patient received calcium gluconate and dextrose with insulin in ED. Her potassium this morning was 5.6 -Holding her lisinopril for hyperkalemia. -Avoid NSAIDs -Patient also received 2 Kayexalate. -Potassium level is 4.6 yesterday. -Follow-up with nephrology recommendations -Her cortisol is within normal limits. -As patient's potassium is within normal limits and there is no overnight event we will discontinue her telemetry. MARTELL:(resolved) -Patient has worsening in her kidney function since June 2017. -Patient has her GFR was in 30s and baseline creatinine 1.5 -Acute kidney injury possibly due to prerenal considering her poor oral intake and chronic diarrhea. -IV hydration with D5 half normal saline at the rate of 50 mL/h. -Her renal ultrasound remained negative. -Follow-up renal function. History of chronic diarrhea: -Patient has positive tissue transglutaminase IgA antibodies consistent with celiac disease. -Considering patient's use of NSAID (ibuprofen) chronically so she is at high risk of lymphocytic/collagenous colitis and both of these are associated with celiac disease independent of association with chronic use of NSAIDs. -Patient will remain on clear liquid and from midnight she will be n.p.o. as patient was not well prepared so scope was not done. Patient received GoLYTELY and Dulcolax last night for bowel preparation. -Follow-up GI recommendation after her scope. Bilateral leg swelling: -Patient is complaining of bilateral leg swelling and pain in left leg. Could be due to amlodipine use. -We will encourage the patient to elevate her legs. -Doppler study is negative for DVT of lower extremity. History of hypertension: -Continue amlodipine -Holding her lisinopril due to hyperkalemia. History of diabetes: -Continue Accu-Cheks -Her blood sugar was 106 this morning History of asthma: -Continue TRC nebulization as needed. -Continue Flovent inhaler DVT prophylaxis: Mechanical only considering her blood in stool CODE STATUS: Full code Problem List: 1. MARTELL (acute kidney injury) 2. Hyperkalemia Pain Ratin Pain Location: none Pain Goal: Remain pain free Pain Plan: pain pathway Tomorrow's Labs & Rationales: Dinorah Bryant MD 11/13/17 0932: Attending MD Review Statement Attending Statement Attending MD Statement: examined this patient, discuss w/resident/PA/CORPORATE BANKING OFFICER, agreed w/resident/PA/CORPORATE BANKING OFFICER, reviewed EMR data (avail), discussed with nursing, discussed with case mgmt, reviewed images Attending Assessment/Plan: Patient did not have the colonoscopy yesterday as she was still not clear despite GoLYTELY. Additional prep has been ordered and she is clearing up so anticipate colonoscopy today. The body is whether she has a lymphocytic or collagenous colitis with her celiac disease. Her hyperkalemia has resolved and she is not to be on an ASHLI we are using Norvasc for blood pressure. She is complaining of lower extremity edema and given that there is slightly asymmetric edema will get an ultrasound to make sure there is no DVT.
[2017-11-13 07:15] VITALS: BP 148/76
[2017-11-13] MEDS ORDERED: NORVASC10 M1 PO ×2 (08:17→09:02)
[2017-11-13 09:11] LABS: ABSOLUTE BASOPHIL COUNT 0 /CUMM (0.0-0.2); ABSOLUTE EOSINOPHIL COUNT 0.2 /CUMM (0.0-0.7); ABSOLUTE GRANULOCYTE CT 3.5 /CUMM (1.4-6.5); ABSOLUTE LYMPH COUNT 1.3 /CUMM (1.2-3.4); ABSOLUTE MONOCYTE COUNT 0.5 /CUMM (0.10-0.60); BASOPHIL % 0.5 % (0.0-2.0); EOSINOPHIL % 4.4 % (0-5); GRANULOCYTE % 63.5 % (42.2-75.2); HEMATOCRIT 27.3 % (37-47); MEAN CORPUSCULAR HGB 30.4 PG (27.0-31.0); MEAN CORPUSCULAR HGB CONC 33.4 G/DL (33.0-37.0); MEAN CORPUSCULAR VOLUME 90.9 FL (81.0-99.0); MEAN PLATELET VOLUME 8.8 FL (7.4-10.4); PLATELET COUNT 240 /CUMM (130-400); RBC DISTRIBUTION WIDTH 12.3 % (11.5-14.5); WHITE BLOOD CELL COUNT 5.4 /CUMM (4.8-10.8)
--- NOTE | 2017-11-13 10:59 | ULTRASOUND REPORT ---
EXAMINATION: US TRIPLEX OF LOWER EXTREMITIES, BILATERAL CLINICAL INFORMATION: Edema and pain COMPARISON: None TECHNIQUE: Color-flow triplex imaging with spectral analysis and compression Doppler were performed on the lower extremities. FINDINGS: Respiratory variation, normal compression and augmented flow are noted throughout the lower extremities. The visualized common femoral vein, superficial femoral vein, profunda femoral vein, popliteal vein and midcalf peroneal and posterior tibial venous segments show no evidence of deep venous thrombosis. There is no Sabillon's cyst. IMPRESSION: No evidence of deep venous thrombosis involving the bilateral lower extremities.
[2017-11-13 16:14] VITALS: BP 140/76
--- NOTE | 2017-11-13 18:35 | Proc Note Endoscopy ---
Endoscopy Procedure Procedure Date: 11/13/17 Procedure Type: EGD w/biopsy (preceding colonoscopy) Locomotive Crane Operator: Merritt Nolasco M.D. ASA Classification: III Indications: Diarrhea Eosinophilia Positive celiac serologies Instrument: diagnostic gastroscope Meds Received: NICANOR Patient's Tolerance: good Complications: none Extent Reached: third part of duodenum Procedure: The patient signed informed consent for EGD and colonoscopy, and was medicated. Lidocaine pharyngeal spray was administered. Pulse oximetry, blood pressure and cardiac monitoring were performed continuously throughout the procedure. The Olympus high-definition gastroscope was inserted into the mouth and advanced to the duodenum. Retroflexion was performed within the stomach to examine the cardia. Careful examination was performed. Findings: The esophagus had normal caliber and contour. The mucosa was normal throughout. There were no varices. The GE junction at 35 cm was normal. There was a small hiatal hernia. The stomach had normal distention and active peristalsis. The cardia was normal. The mucosa and folds were normal throughout. Biopsies were obtained from body, incisura and antrum. The pyloric channel was normal. The duodenal bulb was normal. 2 biopsies were obtained. The mucosa and folds of the second and third portions of the duodenum were normal, and villi were seen. 6 biopsies were obtained from these areas. Impression: * Normal EGD * No gross gastropathy; biopsies obtained * No gross enteropathy; biopsies obtained Recommendations: * Await pathology * Gluten-free diet CC: Jasmina HOOD,Bibiana; Yina HOOD,Korin Arroyo
--- NOTE | 2017-11-13 18:39 | Proc Note Colonoscopy ---
Colonoscopy Procedure Procedure Date: 11/13/17 Procedure Type: flexible sigmoidoscopy with biopsy (following EGD) Travel Insurance Agent: Merritt Nolasco M.D. ASA Classification: III Indications: Colon cancer screening (baseline) Diarrhea Eosinophilia Instrument (Colonoscope): single channel Meds Received: MAC Patient's Tolerance: good Complications: none Extent Reached: rectum Prep: N/A Procedure: Following the initial EGD, the patient was placed in the Macias position, and medicated. Examination of the rectum revealed external hemorrhoids, and decreased sphincter tone. The Olympus high-definition variable stiffness colonoscope was inserted through the anus and advanced to the mid rectum. Findings: The distal rectum was normal. In the mid rectum at the area of the inferior valve, was a circumferential tumor. There was a tight stricture, friability, and firmness. It was not possible to traverse with the colonoscope. Multiple biopsies were obtained. Impression: * Rectal tumor, nearly obstructing Recommendations: * Await pathology * Pending above, surgical evaluation * Pending above, CT scan of the abdomen and pelvis with IV contrast, for staging * May benefit from stent/bowel preparation/resection CC: Jasmina HOOD,Bibiana; Yina HOOD,Korin Arroyo
== END 2017-11-13 19:30 | DRG 683 ==
LOC: ERH 18:51 → 1NO 20:47 → ERHI 20:47 → ENTRNSPT 21:38 → EDTRNSPTSTS 21:39 → EDTRNSPT 21:51 → CMPTRNSPT 22:32 → 1NO 22:32 → ENTRNSPT 11-13 19:18 → EDTRNSPT 11-13 19:19 → EDTRNSPTSTS 11-13 19:19 → CMPTRNSPT 11-13 19:29 → 1NO 11-13 19:30
PROVIDERS: Internal Medicine; Physician Assistant Medical; Student in an Organized Health Care Education/Training Program
PROC: 0DBP8ZX Excision of Rectum, Via Natural or Artificial Opening Endoscopic, Diagnostic (ICD-10-PCS; principal; 2017-11-13)
PROC: 0DB68ZX Excision of Stomach, Via Natural or Artificial Opening Endoscopic, Diagnostic (ICD-10-PCS; 2017-11-13)
PROC: 0DB98ZX Excision of Duodenum, Via Natural or Artificial Opening Endoscopic, Diagnostic (ICD-10-PCS; 2017-11-13)
DX: N17.9 Acute kidney failure, unspecified (principal); E87.2 Acidosis; K92.1 Melena; C20 Malignant neoplasm of rectum; E83.42 Hypomagnesemia; K62.4 Stenosis of anus and rectum; N18.3 Chronic kidney disease, stage 3 (moderate); E11.22 Type 2 diabetes mellitus with diabetic chronic kidney disease; E11.649 Type 2 diabetes mellitus with hypoglycemia without coma; D72.1 Eosinophilia; E87.5 Hyperkalemia; E86.0 Dehydration; I12.9 Hypertensive chronic kidney disease with stage 1 through stage 4 chronic kidney disease, or unspecified chronic kidney disease; K90.0 Celiac disease; K29.80 Duodenitis without bleeding; K52.9 Noninfective gastroenteritis and colitis, unspecified; D64.9 Anemia, unspecified; J45.909 Unspecified asthma, uncomplicated; E66.9 Obesity, unspecified; Z68.35 Body mass index [BMI] 35.0-35.9, adult; M19.90 Unspecified osteoarthritis, unspecified site; Z79.1 Long term (current) use of non-steroidal anti-inflammatories (NSAID); Z79.84 Long term (current) use of oral hypoglycemic drugs
CPT/HCPCS: 1NP; 1NSP; 84133; 84300; 36415; 76775; 81001; 82436; 82570; 87328; 87329; 88305; 88312; 93005; 93010; 93970; 96374; 96375; J0610; J1815; J1940; J7042